=== PATIENT | male | born 1950 | race Caucasian/White ===

== ENCOUNTER 2016-06-20 11:21 | Outpatient (CLI) ==
[2015-03-15 11:23] VITALS: BMI 35.7
[2016-06-20 11:49] LABS: BASOPHILS # (AUTO) 0.1 K/uL (0-0.2); EOSINOPHILS # (AUTO) 0.1 K/ul (0.0-0.7); EOSINOPHILS % (AUTO) 0.9 % (0.0-7.0); HEMATOCRIT 43.2 % (42.0-52.0); HEMOGLOBIN 14.1 g/dl (14.0-18.0); IMMATURE GRANULOCYTE % (AUTO) 0.5 % (0.0-5.0); LYMPHOCYTES # (AUTO) 1.1 K/uL (0.60-3.4); LYMPHOCYTES % (AUTO) 10.4 (10.0-50.0); MEAN CORPUSCULAR HGB CONC 32.6 (31.8-35.4); MEAN CORPUSCULAR VOLUME 91.9 fl (80.0-94.0); MONOCYTES # (AUTO) 0.7 K/uL (0.4-2.0); NEUTROPHILS # (AUTO) 8.5 K/ul (2.0-6.9); NEUTROPHILS % (AUTO) 80.2; PLATELET COUNT 250 10^3/uL (140-440); WHITE BLOOD COUNT 10.57 K/ul (4.2-10.2)
[2016-06-20 12:13] LABS: ALBUMIN/GLOBULIN RATIO 1.14; ANION GAP 13.4; BILIRUBIN,TOTAL 0.39 mg/dL (0.00-1.20); BUN/CREATININE RATIO 15.78; CALCIUM 9.5 mg/dL (8.2-10.2); CREATININE 1.14 mg/dL (0.60-1.10); POTASSIUM 4.4 mmol/L (3.5-5.1); TOTAL PROTEIN 7.5 g/dL (5.8-8.1)
--- NOTE | 2016-06-20 13:57 | DI ---
EXAM: Three views of the left foot HISTORY: Left foot blister. COMPARISON: None FINDINGS: The osseous structures demonstrate no lytic or blastic lesion. Joint spaces demonstrate m inimal first MTP joint degenerative change. There is no displaced fracture or dislocation identifie d. The arch is maintained. The soft tissues are unremarkable. There is a calcaneal spur present. IMPRESSION: No acute abnormality of the left foot with mild degenerative change of the first MTP elda int.
== END 2016-06-20 11:22 | disposition home or self-care (01) ==
LOC: LAB 11:21
PROVIDERS: ATTEND Nurse Practitioner Family
DX: S90.822A Blister (nonthermal), left foot, initial encounter (principal); E11.9 Type 2 diabetes mellitus without complications; L89.891 Pressure ulcer of other site, stage 1
CPT/HCPCS: 36415; 80053; 85025

== ENCOUNTER 2016-06-29 08:27 | Outpatient (CLI) ==
[2015-03-15 11:23] VITALS: BMI 35.7
== END 2016-06-29 08:28 | disposition home or self-care (01) ==
LOC: WOUND 08:27
PROVIDERS: ATTEND Nurse Practitioner Family
DX: E11.621 Type 2 diabetes mellitus with foot ulcer (principal); L97.522 Non-pressure chronic ulcer of other part of left foot with fat layer exposed; E11.9 Type 2 diabetes mellitus without complications; E78.5 Hyperlipidemia, unspecified; E66.9 Obesity, unspecified; Z91.19 Patient's noncompliance with other medical treatment and regimen; Z86.31 Personal history of diabetic foot ulcer
CPT/HCPCS: 99203; 99212

== ENCOUNTER 2016-07-06 09:59 | Outpatient (CLI) ==
[2015-03-15 11:23] VITALS: BMI 35.7
== END 2016-07-06 10:00 | disposition home or self-care (01) ==
LOC: WOUND 09:59
PROVIDERS: ATTEND Nurse Practitioner Family
DX: E11.621 Type 2 diabetes mellitus with foot ulcer (principal); L97.522 Non-pressure chronic ulcer of other part of left foot with fat layer exposed; E11.9 Type 2 diabetes mellitus without complications; Z86.31 Personal history of diabetic foot ulcer; E78.5 Hyperlipidemia, unspecified; Z91.19 Patient's noncompliance with other medical treatment and regimen; E66.9 Obesity, unspecified
CPT/HCPCS: 11042; 87070; 87186; 99213

== ENCOUNTER 2016-07-13 08:51 | Outpatient (CLI) ==
[2015-03-15 11:23] VITALS: BMI 35.7
== END 2016-07-13 08:52 | disposition home or self-care (01) ==
LOC: WOUND 08:51
PROVIDERS: ATTEND Nurse Practitioner Family
DX: E11.621 Type 2 diabetes mellitus with foot ulcer (principal); L97.522 Non-pressure chronic ulcer of other part of left foot with fat layer exposed; E11.9 Type 2 diabetes mellitus without complications; Z86.31 Personal history of diabetic foot ulcer; E78.5 Hyperlipidemia, unspecified; Z91.19 Patient's noncompliance with other medical treatment and regimen; E66.9 Obesity, unspecified
CPT/HCPCS: 11042; 99213

== ENCOUNTER 2016-07-20 09:48 | Outpatient (CLI) | payer OTHER ==
[2015-03-15 11:23] VITALS: BMI 35.7
== END 2016-07-20 09:49 | disposition home or self-care (01) ==
LOC: WOUND 09:48
PROVIDERS: ATTEND Nurse Practitioner Family
DX: E11.621 Type 2 diabetes mellitus with foot ulcer (principal); L97.522 Non-pressure chronic ulcer of other part of left foot with fat layer exposed; E11.9 Type 2 diabetes mellitus without complications; Z86.31 Personal history of diabetic foot ulcer; E78.5 Hyperlipidemia, unspecified; Z91.19 Patient's noncompliance with other medical treatment and regimen; E66.9 Obesity, unspecified
CPT/HCPCS: 11042; 99213

== ENCOUNTER 2016-07-27 09:39 | Outpatient (CLI) ==
[2015-03-15 11:23] VITALS: BMI 35.7
== END 2016-07-27 09:40 | disposition home or self-care (01) ==
LOC: WOUND 09:39
PROVIDERS: ATTEND Nurse Practitioner Family
DX: E11.621 Type 2 diabetes mellitus with foot ulcer (principal); L97.522 Non-pressure chronic ulcer of other part of left foot with fat layer exposed; E11.9 Type 2 diabetes mellitus without complications; Z86.31 Personal history of diabetic foot ulcer; E78.5 Hyperlipidemia, unspecified; Z91.19 Patient's noncompliance with other medical treatment and regimen; E66.9 Obesity, unspecified
CPT/HCPCS: 97602

== ENCOUNTER 2016-08-03 09:48 | Outpatient (CLI) ==
[2015-03-15 11:23] VITALS: BMI 35.7
== END 2016-08-03 09:49 | disposition home or self-care (01) ==
LOC: WOUND 09:48
PROVIDERS: ATTEND Nurse Practitioner Family
DX: E11.621 Type 2 diabetes mellitus with foot ulcer (principal); L97.522 Non-pressure chronic ulcer of other part of left foot with fat layer exposed; E11.9 Type 2 diabetes mellitus without complications; Z86.31 Personal history of diabetic foot ulcer; E78.5 Hyperlipidemia, unspecified; Z91.19 Patient's noncompliance with other medical treatment and regimen; E66.9 Obesity, unspecified; E78.1 Pure hyperglyceridemia; F41.9 Anxiety disorder, unspecified
CPT/HCPCS: 11042; 36415; 80053; 80061; 83036; 85025; 99213

== ENCOUNTER 2016-08-03 10:41 | Outpatient (CLI) ==
[2015-03-15 11:23] VITALS: BMI 35.7
[2016-08-03 11:13] LABS: BASOPHILS # (AUTO) 0.1 K/uL (0-0.2); BASOPHILS % (AUTO) 0.7 % (0.0-3.0); EOSINOPHILS # (AUTO) 0.3 K/ul (0.0-0.7); EOSINOPHILS % (AUTO) 2.5 % (0.0-7.0); HEMATOCRIT 41.4 % (42.0-52.0); HEMOGLOBIN 13.7 g/dl (14.0-18.0); IMMATURE GRANULOCYTE % (AUTO) 0.5 % (0.0-5.0); LYMPHOCYTES # (AUTO) 1.8 K/uL (0.60-3.4); LYMPHOCYTES % (AUTO) 13.8 (10.0-50.0); MEAN CORPUSCULAR HEMOGLOBIN 29.8 pg (27.0-31.0); MEAN CORPUSCULAR HGB CONC 33.1 (31.8-35.4); MEAN CORPUSCULAR VOLUME 90.2 fl (80.0-94.0); MONOCYTES # (AUTO) 0.9 K/uL (0.4-2.0); MONOCYTES % (AUTO) 7.2 (0-10); NEUTROPHILS # (AUTO) 9.6 K/ul (2.0-6.9); NEUTROPHILS % (AUTO) 75.3; PLATELET COUNT 295 10^3/uL (140-440); RED BLOOD COUNT 4.59 10^6/ul (4.70-6.10); WHITE BLOOD COUNT 12.73 K/ul (4.2-10.2)
[2016-08-03 11:31] LABS: ALBUMIN 3.6 g/dL (3.4-5.0); ALBUMIN/GLOBULIN RATIO 0.95; ANION GAP 11.4; BILIRUBIN,TOTAL 0.61 mg/dL (0.00-1.20); BUN/CREATININE RATIO 13.58; CALCIUM 9.4 mg/dL (8.2-10.2); CREATININE 0.81 mg/dL (0.60-1.10); POTASSIUM 4.4 mmol/L (3.5-5.1); TOTAL PROTEIN 7.4 g/dL (5.8-8.1)
== END 2016-08-03 10:42 | disposition home or self-care (01) ==
LOC: LAB 10:41
PROVIDERS: ATTEND Nurse Practitioner Family
DX: E11.9 Type 2 diabetes mellitus without complications (principal); E78.1 Pure hyperglyceridemia; E78.5 Hyperlipidemia, unspecified; F41.9 Anxiety disorder, unspecified
CPT/HCPCS: 36415; 80053; 80061; 83036; 85025

== ENCOUNTER 2016-08-10 09:30 | Outpatient (CLI) | payer OTHER ==
[2015-03-15 11:23] VITALS: BMI 35.7
== END 2016-08-10 09:31 | disposition home or self-care (01) ==
LOC: WOUND 09:30
PROVIDERS: ATTEND Nurse Practitioner Family
DX: E11.621 Type 2 diabetes mellitus with foot ulcer (principal); L97.522 Non-pressure chronic ulcer of other part of left foot with fat layer exposed; E11.9 Type 2 diabetes mellitus without complications; Z86.31 Personal history of diabetic foot ulcer; E78.5 Hyperlipidemia, unspecified; Z91.19 Patient's noncompliance with other medical treatment and regimen; E66.9 Obesity, unspecified
CPT/HCPCS: 11042; 99213

== ENCOUNTER 2016-08-17 09:39 | Outpatient (CLI) ==
[2015-03-15 11:23] VITALS: BMI 35.7
== END 2016-08-17 09:40 | disposition home or self-care (01) ==
LOC: WOUND 09:39
PROVIDERS: ATTEND Nurse Practitioner Family
DX: E11.621 Type 2 diabetes mellitus with foot ulcer (principal); L97.522 Non-pressure chronic ulcer of other part of left foot with fat layer exposed; E78.5 Hyperlipidemia, unspecified; E66.9 Obesity, unspecified; Z86.31 Personal history of diabetic foot ulcer; Z91.19 Patient's noncompliance with other medical treatment and regimen
CPT/HCPCS: 11042; 99213

== ENCOUNTER 2016-08-24 11:26 | Outpatient (CLI) ==
[2015-03-15 11:23] VITALS: BMI 35.7
== END 2016-08-24 11:27 | disposition home or self-care (01) ==
LOC: WOUND 11:26
PROVIDERS: ATTEND Emergency Medicine
DX: E11.621 Type 2 diabetes mellitus with foot ulcer (principal); L97.522 Non-pressure chronic ulcer of other part of left foot with fat layer exposed; E11.9 Type 2 diabetes mellitus without complications; E78.5 Hyperlipidemia, unspecified; Z86.31 Personal history of diabetic foot ulcer; Z91.19 Patient's noncompliance with other medical treatment and regimen; E66.9 Obesity, unspecified
CPT/HCPCS: 11042; 99213; 99214

== ENCOUNTER 2016-08-31 08:34 | Outpatient (CLI) ==
[2015-03-15 11:23] VITALS: BMI 35.7
== END 2016-08-31 08:35 | disposition home or self-care (01) ==
LOC: WOUND 08:34
PROVIDERS: ATTEND Nurse Practitioner Family
DX: L97.522 Non-pressure chronic ulcer of other part of left foot with fat layer exposed (principal); E11.621 Type 2 diabetes mellitus with foot ulcer; E11.9 Type 2 diabetes mellitus without complications; Z86.31 Personal history of diabetic foot ulcer; E78.5 Hyperlipidemia, unspecified; Z91.19 Patient's noncompliance with other medical treatment and regimen; E66.9 Obesity, unspecified
CPT/HCPCS: 11042; 99214

== ENCOUNTER 2016-09-07 08:38 | Outpatient (CLI) | payer OTHER ==
[2015-03-15 11:23] VITALS: BMI 35.7
== END 2016-09-07 08:39 | disposition home or self-care (01) ==
LOC: WOUND 08:38
PROVIDERS: ATTEND Nurse Practitioner Family
DX: L97.522 Non-pressure chronic ulcer of other part of left foot with fat layer exposed (principal); E11.621 Type 2 diabetes mellitus with foot ulcer; Z86.31 Personal history of diabetic foot ulcer; E78.5 Hyperlipidemia, unspecified; Z91.19 Patient's noncompliance with other medical treatment and regimen; E66.9 Obesity, unspecified
CPT/HCPCS: 11042; 87070; 99213

== ENCOUNTER 2016-09-14 08:57 | Outpatient (CLI) | payer OTHER ==
[2015-03-15 11:23] VITALS: BMI 35.7
[2016-09-14 13:10] LABS: FLU INTERNAL QC INTERNAL QC VALID; RAPID FLU A NEGATIVE (NEGATIVE); RAPID FLU B NEGATIVE (NEGATIVE)
[2016-09-14 13:13] LABS: BASOPHILS # (AUTO) 0.1 K/uL (0-0.2); BASOPHILS % (AUTO) 0.5 % (0.0-3.0); EOSINOPHILS % (AUTO) 0.1 % (0.0-7.0); HEMATOCRIT 39.1 % (42.0-52.0); HEMOGLOBIN 12.9 g/dl (14.0-18.0); IMMATURE GRANULOCYTE % (AUTO) 0.5 % (0.0-5.0); LYMPHOCYTES # (AUTO) 2.5 K/uL (0.60-3.4); LYMPHOCYTES % (AUTO) 11.6 (10.0-50.0); MEAN CORPUSCULAR HEMOGLOBIN 29.7 pg (27.0-31.0); MEAN CORPUSCULAR VOLUME 90.1 fl (80.0-94.0); MONOCYTES # (AUTO) 1.7 K/uL (0.4-2.0); NEUTROPHILS # (AUTO) 16.8 K/ul (2.0-6.9); NEUTROPHILS % (AUTO) 79.3; PLATELET COUNT 294 10^3/uL (140-440); RED BLOOD COUNT 4.34 10^6/ul (4.70-6.10)
[2016-09-14 13:18] LABS: WHITE BLOOD COUNT 21.23 K/ul (4.2-10.2)
[2016-09-14 13:41] LABS: ALBUMIN 3.4 g/dL (3.4-5.0); ALBUMIN/GLOBULIN RATIO 0.87; ANION GAP 12.1; BILIRUBIN,TOTAL 0.77 mg/dL (0.00-1.20); BUN/CREATININE RATIO 22.22; CALCIUM 9.2 mg/dL (8.2-10.2); CREATININE 0.99 mg/dL (0.60-1.10); POTASSIUM 4.1 mmol/L (3.5-5.1); TOTAL PROTEIN 7.3 g/dL (5.8-8.1)
== END 2016-09-14 08:58 | disposition home or self-care (01) ==
LOC: WOUND 08:57
PROVIDERS: ATTEND Nurse Practitioner Family
DX: L97.522 Non-pressure chronic ulcer of other part of left foot with fat layer exposed (principal); E11.621 Type 2 diabetes mellitus with foot ulcer; E11.9 Type 2 diabetes mellitus without complications; Z86.31 Personal history of diabetic foot ulcer; E78.5 Hyperlipidemia, unspecified; Z91.19 Patient's noncompliance with other medical treatment and regimen; E66.9 Obesity, unspecified
CPT/HCPCS: 36415; 80053; 85025; 87804

== ENCOUNTER 2016-09-14 14:34 | Emergency (ER) ==
[2016-09-14 14:40] VITALS: BP 121/71; BMI 35.1
--- NOTE | 2016-09-14 15:04 | ED.PDOC ---
General ED Provider: Dr. DION BURDEN JR Chief Complaint: Weakness Stated Complaint: pt began having weakness, some shortness of air,very tired, no energy 2 days ago. was seen at clinic today and told he had a uti, a 20,000 white count and put on clindamycin and told to come to er[End]2 DAYS AGO 98.6 86 16 92% 121/71 DM CHOL CYSTS LEFT FOOT ULCER RIGHT ABDOMEN ABRASION Time Seen by Physician: 15:04 Mode of Arrival: Wheelchair Information Source: Patient Exam Limitations: No limitations [facility] Documentation Reviewed and Agree: No Review of Systems - Review Of Systems Constitutional: Reports: Fever, Malaise, Weakness Eyes: Reports: No symptoms Ears, Nose, Mouth, Throat: Reports: No symptoms Respiratory: Reports: Short of air Cardiac: Reports: No symptoms GI: Reports: No symptoms : Reports: No symptoms Musculoskeletal: Reports: Muscle pain Skin: Reports: No symptoms Neurological: Reports: No symptoms Endocrine: Reports: No symptoms Hematologic/Lymphatic: Reports: No symptoms All Other Systems: Other Past Medical History - Past Medical History Previously Healthy: Yes Endocrine: Reports: DM 2 Cardiovascular: Reports: None Respiratory: Reports: None Hematological: Reports: None Gastrointestinal: Reports: None Genitourinary: Reports: None Neuro/Psych: Reports: None Musculoskeletal: Reports: None Cancer: Reports: None - Surgical History General Surgical History: Reports: Unknown - Family History Family History: Reports: Unknown - Social History Smoking Status: Current every day smoker Hx Substance Use: No Alcohol Screening: None Physical Exam - Physical Exam Appearance: Ill-appearing Ill-appearing: Mild Pain Distress: Mild Eyes: DARIUS, EOMI, Conjunctiva clear ENT: Ears normal, Nose normal, Oropharynx normal Neck: Supple Respiratory: Airway patent, Breath sounds equal, Respirations nonlabored, Rhonchi Cardiovascular: RRR, Pulses normal, No rub, No murmur GI/: Soft, Nontender, No masses, Bowel sounds normal, No Organomegaly Musculoskeletal: Normal strength, ROM intact, No edema, No calf tenderness Skin: Warm, Dry, Normal color Neurological: Sensation intact, Motor intact, Reflexes intact, Cranial nerves intact, Alert, Oriented Psychiatric: Affect appropriate, Mood appropriate Interpretation - EKG Interpretation Time of EKG #1: 15:05 Rate: Normal Rhythm: Sinus Ectopy: None [place]: [place] Critical Care Note - Critical Care Note Total Time (mins): 5 Course - Course Orders, Labs, Meds: Lab Review 09/14/16 09/14/16 15:10 15:35 Lactic Acid 10.8 Total Creatine Kinase 69 Troponin I < 0.0100 B-Natriuretic Peptide 19 Amylase 22 L Lipase 19 Procalcitonin 0.12 Urine Color Yellow Urine Clarity Clear Urine pH 7.0 Ur Specific [place] 1.015 Urine Protein 1+ Urine Glucose (UA) Trace Urine Ketones Negative Urine Blood Negative Urine Nitrite Negative Urine Bilirubin Negative Urine Urobilinogen 4.0 Ur Leukocyte Esterase Trace Urine Microscopic RBC 0-2 Urine Microscopic WBC 10-20 Ur Squamous Epith Cells 2-5 Urine Bacteria 1+ Urine Mucus Trace Orders Category Date Time Status EKG-(ED ONLY) Stat CARDIO 09/14/16 14:53 Completed ED IV/MEDIPORT/POWERPORT .ONCE EMERGENCY 09/14/16 14:53 Active AMYLASE Stat LAB 09/14/16 15:10 Completed B-TYPE NATRIURETIC PEPTIDE Stat LAB 09/14/16 15:10 Completed BLOOD CULTURE Stat LAB 09/14/16 15:10 Received CREATINE KINASE Stat LAB 09/14/16 15:10 Completed LACTIC ACID Stat LAB 09/14/16 15:10 Completed LIPASE Stat LAB 09/14/16 15:10 Completed PROCALCITONIN Stat LAB 09/14/16 15:10 Completed TROPONIN I Stat LAB 09/14/16 15:10 Completed URINALYSIS C & S IF INDICATED Stat LAB 09/14/16 15:35 Completed URINE CULTURE Stat LAB 09/14/16 16:03 Received 0.9 % Sodium Chloride [Saline Flush] MEDS 09/14/16 14:53 Active 1 syr IVF PRN PRN Levofloxacin/D5w [Levaquin] 150 ml MEDS 09/14/16 15:57 Discontinued IV .STK-MED Levofloxacin/D5w [Levaquin] 750 mg MEDS 09/14/16 15:54 Active Premix 150 ml D5w 1 bag IV ONCE CHEST, 2 VIEWS PA & LAT Stat RADS 09/14/16 15:56 Completed Medications Generic Name Dose Route Start Last Admin Trade Name Freq PRN Reason Stop Dose Admin Levofloxacin/Dextrose 750 mg/ 150 mls @ 100 mls/hr 09/14/16 15:54 09/14/16 16 :03 Dextrose IV 09/14/16 17:23 100 mls/hr ONCE STA Administration Sodium Chloride 1 syr 09/14/16 14:53 Saline Flush IVF PRN PRN To flush IV Vital Signs: Temp Pulse Resp BP Pulse Ox 09/14/16 16:05 97.3 F L 09/14/16 14:37 98.6 F 86 16 121/71 92 L Departure - Departure Time of Disposition: 17:20 Disposition: HOME SELF-CARE Discharge Problem: Left lower lobe pneumonia Qualifiers: Pneumonia type: due to unspecified organism Qualifier Code: (J18.1) Lobar pneumonia, unspecified organism UTI (urinary tract infection) Qualifiers: Urinary tract infection type: acute cystitis Hematuria presence: without hematuria Qualifier Code: (N30.00) Acute cystitis without hematuria Instructions: Bacterial Pneumonia (ED), Urinary Tract Infection in Men (ED) Condition: Good Pt referred to PMD for follow-up: Yes Additional Instructions: Levaquin daily for one week- stop Celexa on days when you take Levaquin recheck urine 2 weeks sooner if not resolve recheck PMD 2 weeks discuss follow up for urinary tract infection return if fever over 101.0 if short of breath if worsening Prescriptions: Guaifenesin/Codeine Phosphate [Robitussin AC Syrup] 10 ml PO Q6H PRN #240 ml PRN Reason: Cough Levofloxacin [Levaquin] 750 mg PO DAILY #7 tablet Allergies/Adverse Reactions: Allergies ampicillin Adverse Reaction (Verified 09/14/16 14:40) codeine Adverse Reaction (Verified 09/14/16 14:40) Swelling Sulfa (Sulfonamide Antibiotics) Adverse Reaction (Verified 09/14/16 14:40) Itching Home Medications: Ambulatory Orders Citalopram Hydrobromide [Celexa] 20 mg PO DAILY 10/18/13 Guaifenesin/Codeine Phosphate [Robitussin AC Syrup] 10 ml PO Q6H PRN #240 ml Levofloxacin [Levaquin] 750 mg PO DAILY #7 tablet 09/14/16
[2016-09-14] MEDS ORDERED: LEVAQUIN 750 MG in PREMIX 150 ML D5W 1 BAG IV STA (15:54)
[2016-09-14 15:56] LABS: BILIRUBIN,URINE Negative (NEGATIVE); KETONES,URINE Negative (NEGATIVE); LEUKOCYTE ESTERASE ,URINE Trace (NEGATIVE); NITRITE,URINE Negative (NEGATIVE); PROTEIN,URINE 1+ (NEGATIVE); URINE, BLOOD Negative (NEGATIVE)
[2016-09-14 15:57] LABS: ADD URINE MICROSCOPIC YES
[2016-09-14] MEDS ORDERED: LEVAQUIN 150 ML IV ONE (15:57)
[2016-09-14 15:59] LABS: AMYLASE 22 U/L (25-115); CREATINE KINASE 69 U/L; LIPASE 19 U/L (8-78)
[2016-09-14 16:03] LABS: BACTERIA,URINE 1+ (NOT PRESENT)
[2016-09-14 16:06] VITALS: TEMP 97.3
--- NOTE | 2016-09-14 16:46 | DI ---
EXAM: CHEST FRONTAL AND LATERAL VIEWS HISTORY: Fever, weakness. COMPARISON: None FINDINGS: Heart size within normal limits. There is at least mild aortic atherosclerosis. Subtle discoid density in the left base. Lungs are otherwise clear. Normal vascularity. There is no pneu mothorax or pleural fluid. IMPRESSION: Subtle discoid density in the left base could represent scarring, atelectasis or minim al pneumonia. Lungs are otherwise clear.
== END 2016-09-14 17:48 | disposition home or self-care (01) ==
LOC: ED 14:34
DX: J18.1 Lobar pneumonia, unspecified organism (principal); N30.00 Acute cystitis without hematuria; B96.4 Proteus (mirabilis) (morganii) as the cause of diseases classified elsewhere; R06.02 Shortness of breath; E11.9 Type 2 diabetes mellitus without complications; F17.210 Nicotine dependence, cigarettes, uncomplicated; L97.522 Non-pressure chronic ulcer of other part of left foot with fat layer exposed; E11.621 Type 2 diabetes mellitus with foot ulcer; Z86.31 Personal history of diabetic foot ulcer; E78.5 Hyperlipidemia, unspecified; Z91.19 Patient's noncompliance with other medical treatment and regimen; E66.9 Obesity, unspecified; R52 Pain, unspecified; R42 Dizziness and giddiness; Z12.5 Encounter for screening for malignant neoplasm of prostate
CPT/HCPCS: 11042; 36415; 80053; 81001; 82150; 82550; 83605; 83690; 83880; 84145; 84484; 85025; 87040; 87086; 87186; 87804; 93005; 93010; 96365; 96366; 99213; 99283

== ENCOUNTER 2016-09-21 09:26 | Outpatient (CLI) ==
--- NOTE | 2016-09-21 12:02 | CT ---
EXAM: Noncontrast CT of the chest HISTORY: Shortness of breath COMPARISON: 09/14/2016 chest x-ray TECHNIQUE: Noncontrast CT of the chest FINDINGS: There is minimal inferior left lower lobe subsegmental atelectasis. Minimal left lower lobe tree in bud type opacities are also present, as seen on axial image 43. There is minimal peribronchial wal l thickening. No focal consolidation, pleural effusion or pneumothorax is seen. A few calcified gra nulomas are present. Heart size is normal. Atherosclerotic calcifications are present including the coronary arteries. Calcified mediastinal lymph nodes are seen. No mediastinal lymphadenopathy is identified. Multiple right renal cysts are seen with the largest measuring 9.6 cm. Other right renal hypodense lesions are present which are too small to accurately characterize. IMPRESSION: Minimal left lower lobe tree in bud type opacities compatible with small airway infection or inflamm ation. Minimal peribronchial wall thickening which can be seen with bronchitis/bronchiolitis. Minimal left lower lobe subsegmental atelectasis. Evidence of prior granulomatous infection. Atherosclerosis including the coronary arteries. Multiple right renal cysts and other hypodensities too small to accurately characterize.
== END 2016-09-21 09:27 | disposition home or self-care (01) ==
LOC: WOUND 09:26
PROVIDERS: ATTEND Nurse Practitioner Family
DX: L97.522 Non-pressure chronic ulcer of other part of left foot with fat layer exposed (principal); E11.621 Type 2 diabetes mellitus with foot ulcer; Z86.31 Personal history of diabetic foot ulcer; E78.5 Hyperlipidemia, unspecified; Z91.19 Patient's noncompliance with other medical treatment and regimen; E66.9 Obesity, unspecified
CPT/HCPCS: 11042; 99213

== ENCOUNTER 2016-09-28 09:00 | Outpatient (CLI) | END 2016-09-28 09:01 | disposition home or self-care (01) | LOC: WOUND 09:00 | PROVIDERS: ATTEND Nurse Practitioner Family | DX: L97.522 Non-pressure chronic ulcer of other part of left foot with fat layer exposed (principal); E11.621 Type 2 diabetes mellitus with foot ulcer; E11.9 Type 2 diabetes mellitus without complications; Z86.31 Personal history of diabetic foot ulcer; E78.5 Hyperlipidemia, unspecified; Z91.19 Patient's noncompliance with other medical treatment and regimen; E66.9 Obesity, unspecified | CPT/HCPCS: 11042; 99213 ==

== ENCOUNTER 2016-10-12 08:46 | Outpatient (CLI) | payer OTHER | END 2016-10-12 08:47 | disposition home or self-care (01) | LOC: WOUND 08:46 | PROVIDERS: ATTEND Nurse Practitioner Family | DX: L97.522 Non-pressure chronic ulcer of other part of left foot with fat layer exposed (principal); E11.621 Type 2 diabetes mellitus with foot ulcer; E11.9 Type 2 diabetes mellitus without complications; Z86.31 Personal history of diabetic foot ulcer; E78.5 Hyperlipidemia, unspecified; Z91.19 Patient's noncompliance with other medical treatment and regimen; E66.9 Obesity, unspecified | CPT/HCPCS: 11042; 11045; 99213 ==

== ENCOUNTER 2016-10-14 08:49 | Outpatient (CLI) | payer OTHER ==
[2016-10-14] MEDS ORDERED: ALBUTEROL 0.083% NEB NEB STA (09:07)
== END 2016-10-14 08:50 | disposition home or self-care (01) ==
LOC: CAR 08:49
PROVIDERS: ATTEND Emergency Medicine
DX: J44.9 Chronic obstructive pulmonary disease, unspecified (principal)

== ENCOUNTER 2016-10-25 11:29 | Outpatient (CLI) ==
[2016-10-25 12:45] LABS: FLU INTERNAL QC INTERNAL QC VALID; RAPID FLU A NEGATIVE (NEGATIVE); RAPID FLU B NEGATIVE (NEGATIVE)
== END 2016-10-25 11:30 | disposition home or self-care (01) ==
LOC: LAB 11:29
PROVIDERS: ATTEND Nurse Practitioner Family
DX: R50.9 Fever, unspecified (principal); R52 Pain, unspecified
CPT/HCPCS: 87804

== ENCOUNTER → 2016-10-26 | Outpatient (RCR) | payer OTHER | LOC: WOUND 08:50 | PROVIDERS: ATTEND Nurse Practitioner Family | DX: L97.522 Non-pressure chronic ulcer of other part of left foot with fat layer exposed (principal); E11.621 Type 2 diabetes mellitus with foot ulcer; E11.9 Type 2 diabetes mellitus without complications; Z86.31 Personal history of diabetic foot ulcer; E78.5 Hyperlipidemia, unspecified; Z91.19 Patient's noncompliance with other medical treatment and regimen; E66.9 Obesity, unspecified | CPT/HCPCS: 11042; 99213 ==

== ENCOUNTER 2016-11-02 08:24 | Outpatient (CLI) | END 2016-11-02 08:25 | disposition home or self-care (01) | LOC: WOUND 08:24 | PROVIDERS: ATTEND Nurse Practitioner Family | DX: L97.522 Non-pressure chronic ulcer of other part of left foot with fat layer exposed (principal); E11.621 Type 2 diabetes mellitus with foot ulcer; E11.9 Type 2 diabetes mellitus without complications; Z86.31 Personal history of diabetic foot ulcer; E78.5 Hyperlipidemia, unspecified; Z91.19 Patient's noncompliance with other medical treatment and regimen; E66.9 Obesity, unspecified | CPT/HCPCS: 11042 ==

== ENCOUNTER → 2016-11-09 | Outpatient (CLI) | LOC: WOUND 09:16 → EDSTATUS 09:34 | PROVIDERS: ATTEND Nurse Practitioner Family | DX: L97.522 Non-pressure chronic ulcer of other part of left foot with fat layer exposed (principal); E11.621 Type 2 diabetes mellitus with foot ulcer; E11.9 Type 2 diabetes mellitus without complications; Z86.31 Personal history of diabetic foot ulcer; E78.5 Hyperlipidemia, unspecified; Z91.19 Patient's noncompliance with other medical treatment and regimen; E66.9 Obesity, unspecified | CPT/HCPCS: 11042; 99213 ==

== ENCOUNTER 2016-11-10 14:16 | Outpatient (CLI) | payer OTHER ==
[2016-11-10 14:39] LABS: BASOPHILS # (AUTO) 0.1 K/uL (0-0.2); BASOPHILS % (AUTO) 1.3 % (0.0-3.0); EOSINOPHILS # (AUTO) 0.2 K/ul (0.0-0.7); EOSINOPHILS % (AUTO) 1.5 % (0.0-7.0); HEMATOCRIT 43.2 % (42.0-52.0); HEMOGLOBIN 13.9 g/dl (14.0-18.0); IMMATURE GRANULOCYTE % (AUTO) 0.3 % (0.0-5.0); LYMPHOCYTES # (AUTO) 2.3 K/uL (0.60-3.4); LYMPHOCYTES % (AUTO) 23.2 (10.0-50.0); MEAN CORPUSCULAR HGB CONC 32.2 (31.8-35.4); MONOCYTES # (AUTO) 0.7 K/uL (0.4-2.0); MONOCYTES % (AUTO) 7.3 (0-10); NEUTROPHILS # (AUTO) 6.6 K/ul (2.0-6.9); NEUTROPHILS % (AUTO) 66.4; PLATELET COUNT 310 10^3/uL (140-440); WHITE BLOOD COUNT 9.89 K/ul (4.2-10.2)
== END 2016-11-10 14:17 | disposition home or self-care (01) ==
LOC: LAB 14:16
PROVIDERS: ATTEND Emergency Medicine
DX: E11.9 Type 2 diabetes mellitus without complications (principal)
CPT/HCPCS: 36415; 83036; 85025

== ENCOUNTER 2016-11-16 07:52 | Outpatient (CLI) | END 2016-11-16 07:53 | disposition home or self-care (01) | LOC: WOUND 07:52 | PROVIDERS: ATTEND Nurse Practitioner Family | DX: L97.522 Non-pressure chronic ulcer of other part of left foot with fat layer exposed (principal); E11.621 Type 2 diabetes mellitus with foot ulcer; E11.9 Type 2 diabetes mellitus without complications; Z86.31 Personal history of diabetic foot ulcer; E78.5 Hyperlipidemia, unspecified; Z91.19 Patient's noncompliance with other medical treatment and regimen; E66.9 Obesity, unspecified ==

== ENCOUNTER 2016-11-23 08:19 | Outpatient (CLI) | END 2016-11-23 08:20 | disposition home or self-care (01) | LOC: WOUND 08:19 | PROVIDERS: ATTEND Nurse Practitioner Family | DX: L97.522 Non-pressure chronic ulcer of other part of left foot with fat layer exposed (principal); E11.621 Type 2 diabetes mellitus with foot ulcer; E11.9 Type 2 diabetes mellitus without complications; Z86.31 Personal history of diabetic foot ulcer; E78.5 Hyperlipidemia, unspecified; Z91.19 Patient's noncompliance with other medical treatment and regimen; E66.9 Obesity, unspecified ==

== ENCOUNTER 2016-12-14 08:20 | Outpatient (CLI) | END 2016-12-14 08:21 | disposition home or self-care (01) | LOC: WOUND 08:20 | PROVIDERS: ATTEND Nurse Practitioner Family | DX: L97.522 Non-pressure chronic ulcer of other part of left foot with fat layer exposed (principal); E11.621 Type 2 diabetes mellitus with foot ulcer; E78.5 Hyperlipidemia, unspecified; E66.9 Obesity, unspecified; Z86.31 Personal history of diabetic foot ulcer; Z91.19 Patient's noncompliance with other medical treatment and regimen ==

== ENCOUNTER 2016-12-21 08:11 | Outpatient (CLI) | payer OTHER | END 2016-12-21 08:12 | disposition home or self-care (01) | LOC: WOUND 08:11 | PROVIDERS: ATTEND Nurse Practitioner Family | DX: L97.522 Non-pressure chronic ulcer of other part of left foot with fat layer exposed (principal); E11.621 Type 2 diabetes mellitus with foot ulcer; E11.9 Type 2 diabetes mellitus without complications; Z86.31 Personal history of diabetic foot ulcer; E78.5 Hyperlipidemia, unspecified; Z91.19 Patient's noncompliance with other medical treatment and regimen; E66.9 Obesity, unspecified | CPT/HCPCS: 99211; 99213 ==

== ENCOUNTER 2017-01-11 08:18 | Outpatient (CLI) ==
[2017-01-11 08:40] LABS: BASOPHILS # (AUTO) 0.1 K/uL (0-0.2); BASOPHILS % (AUTO) 1.3 % (0.0-3.0); EOSINOPHILS # (AUTO) 0.4 K/ul (0.0-0.7); EOSINOPHILS % (AUTO) 4.7 % (0.0-7.0); HEMOGLOBIN 13.8 g/dl (14.0-18.0); IMMATURE GRANULOCYTE % (AUTO) 0.3 % (0.0-5.0); LYMPHOCYTES # (AUTO) 1.7 K/uL (0.60-3.4); LYMPHOCYTES % (AUTO) 18.3 (10.0-50.0); MEAN CORPUSCULAR HEMOGLOBIN 29.2 pg (27.0-31.0); MEAN CORPUSCULAR HGB CONC 32.9 (31.8-35.4); MEAN CORPUSCULAR VOLUME 88.8 fl (80.0-94.0); MONOCYTES # (AUTO) 0.7 K/uL (0.4-2.0); MONOCYTES % (AUTO) 7.6 (0-10); NEUTROPHILS # (AUTO) 6.2 K/ul (2.0-6.9); NEUTROPHILS % (AUTO) 67.8; PLATELET COUNT 320 10^3/uL (140-440); RED BLOOD COUNT 4.73 10^6/ul (4.70-6.10); WHITE BLOOD COUNT 9.11 K/ul (4.2-10.2)
[2017-01-11 09:21] LABS: ALBUMIN 3.6 g/dL (3.4-5.0); ALBUMIN/GLOBULIN RATIO 0.97; ANION GAP 16.3; BILIRUBIN,TOTAL 0.52 mg/dL (0.00-1.20); BUN/CREATININE RATIO 23.71; CALCIUM 9.5 mg/dL (8.2-10.2); CHOL/HDL RATIO 3.5 (4.5-6.4); CREATININE 0.97 mg/dL (0.60-1.10); POTASSIUM 4.3 mmol/L (3.5-5.1); TOTAL PROTEIN 7.3 g/dL (5.8-8.1)
== END 2017-01-11 08:19 | disposition home or self-care (01) ==
LOC: WOUND 08:18
PROVIDERS: ATTEND Nurse Practitioner Family
DX: L97.522 Non-pressure chronic ulcer of other part of left foot with fat layer exposed (principal); E11.621 Type 2 diabetes mellitus with foot ulcer; E11.9 Type 2 diabetes mellitus without complications; E78.5 Hyperlipidemia, unspecified; Z86.31 Personal history of diabetic foot ulcer; Z91.19 Patient's noncompliance with other medical treatment and regimen; E66.9 Obesity, unspecified
CPT/HCPCS: 36415; 80053; 80061; 83036; 84443; 85025

== ENCOUNTER 2017-05-03 10:09 | Outpatient (CLI) ==
[2017-05-03 10:25] LABS: BASOPHILS # (AUTO) 0.1 K/uL (0-0.2); BASOPHILS % (AUTO) 1.7 % (0.0-3.0); EOSINOPHILS # (AUTO) 0.3 K/ul (0.0-0.7); EOSINOPHILS % (AUTO) 4.6 % (0.0-7.0); HEMATOCRIT 39.2 % (42.0-52.0); IMMATURE GRANULOCYTE % (AUTO) 0.3 % (0.0-5.0); LYMPHOCYTES # (AUTO) 1.4 K/uL (0.60-3.4); LYMPHOCYTES % (AUTO) 20.5 (10.0-50.0); MEAN CORPUSCULAR HEMOGLOBIN 30.7 pg (27.0-31.0); MEAN CORPUSCULAR HGB CONC 33.2 (31.8-35.4); MEAN CORPUSCULAR VOLUME 92.5 fl (80.0-94.0); MONOCYTES # (AUTO) 0.4 K/uL (0.4-2.0); MONOCYTES % (AUTO) 5.7 (0-10); NEUTROPHILS # (AUTO) 4.7 K/ul (2.0-6.9); NEUTROPHILS % (AUTO) 67.2; PLATELET COUNT 294 10^3/uL (140-440); RED BLOOD COUNT 4.24 10^6/ul (4.70-6.10); WHITE BLOOD COUNT 6.99 K/ul (4.2-10.2)
[2017-05-03 11:19] LABS: ALBUMIN 3.3 g/dL (3.4-5.0); ALBUMIN/GLOBULIN RATIO 0.92; ANION GAP 11.2; BILIRUBIN,TOTAL 0.3 mg/dL (0.00-1.20); BUN/CREATININE RATIO 18.51; CALCIUM 9.1 mg/dL (8.2-10.2); CHOL/HDL RATIO 4.1 (4.5-6.4); CREATININE 0.81 mg/dL (0.60-1.10); POTASSIUM 4.2 mmol/L (3.5-5.1); TOTAL PROTEIN 6.9 g/dL (5.8-8.1)
== END 2017-05-03 10:10 | disposition home or self-care (01) ==
LOC: LAB 10:09
PROVIDERS: ATTEND Emergency Medicine
DX: E11.9 Type 2 diabetes mellitus without complications (principal)
CPT/HCPCS: 36415; 80053; 80061; 83036; 84443; 85025

== ENCOUNTER 2017-08-04 09:27 | Outpatient (CLI) | END 2017-08-04 09:28 | disposition home or self-care (01) | LOC: RHC-LAB 09:27 | PROVIDERS: ATTEND Nurse Practitioner Family | DX: E11.9 Type 2 diabetes mellitus without complications (principal); E78.1 Pure hyperglyceridemia; E78.5 Hyperlipidemia, unspecified; Z72.0 Tobacco use | CPT/HCPCS: 36415; 80053; 80061; 83036; 85025 ==

== ENCOUNTER 2017-08-09 08:16 | Outpatient (CLI) | END 2017-08-09 08:17 | disposition home or self-care (01) | LOC: WOUND 08:16 | PROVIDERS: ATTEND Nurse Practitioner Family | DX: L97.522 Non-pressure chronic ulcer of other part of left foot with fat layer exposed (principal); E11.621 Type 2 diabetes mellitus with foot ulcer; Z86.31 Personal history of diabetic foot ulcer; E78.5 Hyperlipidemia, unspecified; E66.9 Obesity, unspecified ==

== ENCOUNTER 2017-08-16 09:10 | Outpatient (CLI) | END 2017-08-16 09:11 | disposition home or self-care (01) | LOC: WOUND 09:10 | PROVIDERS: ATTEND Nurse Practitioner Family | DX: L97.522 Non-pressure chronic ulcer of other part of left foot with fat layer exposed (principal); E11.621 Type 2 diabetes mellitus with foot ulcer; Z86.31 Personal history of diabetic foot ulcer; E78.5 Hyperlipidemia, unspecified; E66.9 Obesity, unspecified | CPT/HCPCS: 11042; 99212; 99213 ==

== ENCOUNTER 2017-08-18 07:43 | Outpatient (CLI) ==
--- NOTE | 2017-08-19 00:44 | NM ---
EXAM: Bone scan, three-phase . HISTORY: Sore on fifth toe of the left foot for 3 weeks. Also ulcer on side of the left great toe fo r 3 weeks. The patient is diabetic. COMPARISON: None of this type. Radiograph 06/20/2016. PROCEDURE: The patient was injected with 26 mCi of 99m technetium HDP intravenously. A flow study was performed followed by immediate blood pool phase images. After an appropriate interval, delayed bone phase images were obtained. FINDINGS:The anterior perfusion phase images show focal increased activity at the level of the fifth toe of the left foot and along the first metatarsal of the left foot. Immediate blood pool phase farhan ges show intense activity in the fifth toe of the left foot and modest activity along the first metat arsal of the left foot. There is modest activity at the tip of the right great toe. Delayed bone pha se images demonstrate continued intense activity in the fifth toe of the left foot and modest increas ed activity in the left first metatarsal phalangeal joint and at the tip of the great toe with simila r activity on the right. The delayed images incidentally show asymmetrically increased activity in th e left calcaneus compared to the right. IMPRESSION: 1.The three-phase examination is positive on all three-phase in the fifth toe of the left foot. The findings are compatible with the presence of osteomyelitis. 2.There is modest increased activity in the first metatarsal on the left on the immediate blood pool phase images with residual activity in the first metatarsal phalangeal joint and distal phalanx of th e great toe on the left probably associated with degenerative arthritis although early osteomyelitis cannot be totally excluded. Similar findings are seen in the great toe on the right. 3. There is asymmetric increased activity in the left calcaneus on the delayed images; this may repre sent evidence of repetitive stress.
== END 2017-08-18 07:44 | disposition home or self-care (01) ==
LOC: RAD 07:43
PROVIDERS: ATTEND Nurse Practitioner Family
DX: L97.528 Non-pressure chronic ulcer of other part of left foot with other specified severity (principal); E11.9 Type 2 diabetes mellitus without complications

== ENCOUNTER 2017-08-23 08:04 | Outpatient (CLI) | payer OTHER | END 2017-08-23 08:05 | disposition home or self-care (01) | LOC: WOUND 08:04 | PROVIDERS: ATTEND Nurse Practitioner Family | DX: L97.522 Non-pressure chronic ulcer of other part of left foot with fat layer exposed (principal); E11.621 Type 2 diabetes mellitus with foot ulcer; Z86.31 Personal history of diabetic foot ulcer; E78.5 Hyperlipidemia, unspecified; E66.9 Obesity, unspecified; M86.9 Osteomyelitis, unspecified ==

== ENCOUNTER 2017-10-27 22:20 | Emergency (ER) | payer OTHER ==
[2017-10-27 22:34] VITALS: BP 144/78; BMI 34.0
--- NOTE | 2017-10-27 22:51 | ED.PDOC ---
General ED Provider: Dr. MAREK CONNOLLY Chief Complaint: Fever Stated Complaint: Been having fever, no chills, not short of breath, not been coughing or congested. Time Seen by Physician: 22:51 Mode of Arrival: Wheelchair Information Source: Patient Primary Care Provider: MAREK CONNOLLY-[facility] Nursing and Triage Documentation Reviewed and Agree: Yes Reviewed sepsis parameters & appropriate labs ordered?: Yes System Inflammatory Response Syndrome: Temp 101F or Greater, Temp 96.8F or Lower , Pulse >90 BPM Sepsis Protocol: For patient's 13 years and over: Temp is 96.8 and below OR 101 and greater Pulse >90 BPM Resp >20/minute Acutely Altered Mental Status Are patient's symptoms suggestive of a new infection, such as: -Pneumonia -Skin, Soft Tissue -Endocarditis -UTI -Bone, Joint Infection -Implantable Device -Acute Abdominal Infection -Wound Infection -Meningitis -Blood Stream Catheter Infection -Unknown Skin Complaint Exam - Skin/Soft Tissue Complaint/Exam Symptoms Are: Still present Timing: Constant Initial Severity: Mild Current Severity: Mild Character: Reports: Redness, Swelling Aggravating: Reports: Touch Alleviating: Reports: None Associated Signs and Symptoms: Reports: Fever, Tenderness. Denies: Chills, Itching, Drainage, Bruising, Red streaks, Joint swelling Related History: Reports: Similar episode Related Surgical History: Reports: None Recent Exposure to Others w/Similar Symptoms: Yes Skin Findings: Present: Erythema, Induration Joint Tenderness Present: No Differential Diagnoses: Abscess, Cellulitis Review of Systems - Review Of Systems Constitutional: Reports: Fever, Malaise Eyes: Reports: No symptoms Ears, Nose, Mouth, Throat: Reports: No symptoms Respiratory: Reports: No symptoms Cardiac: Reports: No symptoms GI: Reports: No symptoms : Reports: No symptoms Musculoskeletal: Reports: No symptoms Skin: Reports: No symptoms Neurological: Reports: No symptoms Endocrine: Reports: No symptoms Hematologic/Lymphatic: Reports: No symptoms All Other Systems: Reviewed and Negative Past Medical History - Past Medical History Previously Healthy: Yes Endocrine: Reports: DM 2 Cardiovascular: Reports: Hypertension Respiratory: Reports: None Hematological: Reports: None Gastrointestinal: Reports: None Genitourinary: Reports: None Neuro/Psych: Reports: None Musculoskeletal: Reports: None Cancer: Reports: None - Surgical History General Surgical History: Reports: Unknown - Family History Family History: Reports: Unknown - Social History Smoking Status: Current every day smoker, Light tobacco smoker Smoking Cessation Counseling Time: > 3 min - 10 min Hx Substance Use: No Alcohol Screening: Occasionally - Immunizations Tetanus Shot up to Date: Yes Physical Exam - Physical Exam Appearance: Well-appearing, No pain distress, Well-nourished Eyes: DARIUS, EOMI, Conjunctiva clear ENT: Ears normal, Nose normal, Oropharynx normal Respiratory: Airway patent, Breath sounds clear, Breath sounds equal, Respirations nonlabored Cardiovascular: RRR, Pulses normal, No rub, No murmur GI/: Soft, Nontender, No masses, Bowel sounds normal, No Organomegaly Musculoskeletal: Normal strength, ROM intact, No edema, No calf tenderness Skin: Warm (rt arm wound swelling rednedd tender.), Dry, Normal color Neurological: Sensation intact, Motor intact, Reflexes intact, Cranial nerves intact, Alert, Oriented Psychiatric: Affect appropriate, Mood appropriate Critical Care Note - Critical Care Note Total Time (mins): 30 Course - Course Hematology/Chemistry: 10/27/17 22:50 10/27/17 22:50 Orders, Labs, Meds: Lab Review 10/27/17 10/27/17 10/27/17 22:50 22:50 22:50 WBC 8.45 RBC 4.70 Hgb 13.9 L Hct 42.4 MCV 90.2 MCH 29.6 MCHC 32.8 RDW Coeff of Yolanda 13.7 Plt Count 341 Immature Gran % (Auto) 0.2 Neut % (Auto) 85.9 Lymph % (Auto) 7.0 L Zavala % (Auto) 5.4 Eos % (Auto) 0.6 Baso % (Auto) 0.9 Immature Gran # (Auto) 0.0 Neut # (Auto) 7.3 H Lymph # (Auto) 0.6 Zavala # (Auto) 0.5 Eos # (Auto) 0.1 Baso # (Auto) 0.1 Sodium 136 Potassium 3.9 Chloride 102 Carbon Dioxide 22 L Anion Gap 15.9 BUN 14 Creatinine 0.91 Estimated GFR (MDRD) 83.00 BUN/Creatinine Ratio 15.38 Glucose 137 H Lactic Acid 16.5 Calcium 9.6 Total Bilirubin 0.4 AST 30 ALT 23 Alkaline Phosphatase 41 L Total Protein 8.2 H Albumin 3.3 L Globulin 4.9 Albumin/Globulin Ratio 0.67 Procalcitonin 10/27/17 22:50 WBC RBC Hgb Hct MCV MCH MCHC RDW Coeff of Yolanda Plt Count Immature Gran % (Auto) Neut % (Auto) Lymph % (Auto) Zavala % (Auto) Eos % (Auto) Baso % (Auto) Immature Gran # (Auto) Neut # (Auto) Lymph # (Auto) Zavala # (Auto) Eos # (Auto) Baso # (Auto) Sodium Potassium Chloride Carbon Dioxide Anion Gap BUN Creatinine Estimated GFR (MDRD) BUN/Creatinine Ratio Glucose Lactic Acid Calcium Total Bilirubin AST ALT Alkaline Phosphatase Total Protein Albumin Globulin Albumin/Globulin Ratio Procalcitonin 0.22 Orders Category Date Time Status BLOOD CULTURE (ED ONLY) Stat LAB 10/27/17 22:50 Received CBC W/ AUTO DIFF Stat LAB 10/27/17 22:50 Completed COMPREHENSIVE METABOLIC PANEL Stat LAB 10/27/17 22:50 Completed LACTIC ACID Stat LAB 10/27/17 22:50 Completed PROCALCITONIN Stat LAB 10/27/17 22:50 Completed UA [URINALYSIS C & S IF INDICATED] Stat LAB 10/27/17 23:36 Uncollected Ceftriaxone Sodium [Rocephin] MEDS 10/27/17 23:36 Discontinued 1 gm IM ONCE STA Lidocaine HCl/Pf [Lidocaine HCl 1% Sdv] MEDS 10/27/17 23:36 Discontinued 2.1 ml IM ONCE STA Sulfamethoxazole/Trimethoprim [Bactrim Ds 800/160 mg] MEDS 10/27/17 23:36 Discontinued 1 tab PO ONCE STA CHEST, 2 VIEWS PA & LAT Stat RADS 10/27/17 23:29 Completed Medications Discontinued Medications Generic Name Dose Route Start Last Admin Trade Name Wilmar PRN Reason Stop Dose Admin Ceftriaxone Sodium 1 gm 10/27/17 23:36 10/27/17 23:57 Rocephin IM 10/27/17 23:37 1 gm ONCE STA Administration Lidocaine HCl 2.1 ml 10/27/17 23:36 10/27/17 23:57 Lidocaine Hcl 1% Sdv IM 10/27/17 23:37 2.1 ml ONCE STA Administration Trimethoprim/Sulfamethoxazole 1 tab 10/27/17 23:36 10/27/17 23:58 Bactrim Ds 800/160 Mg PO 10/27/17 23:37 Not Given ONCE STA Vital Signs: Temp Pulse Resp BP Pulse Ox 10/27/17 22:22 102.8 F H 111 H 24 144/78 H 92 L Departure - Departure Time of Disposition: 23:33 Disposition: HOME SELF-CARE Discharge Problem: Fever Cellulitis Qualifiers: Site of cellulitis: extremity Site of cellulitis of extremity: upper extremity Laterality: right Qualified Code(s): L03.113 - Cellulitis of right upper limb Instructions: Cellulitis (ED) Condition: Stable Pt referred to PMD for follow-up: Yes IPMP verified?: No Additional Instructions: continue f/u with wound care. Allergies/Adverse Reactions: Allergies dicyclomine Allergy (Severe, Unverified 10/27/17 22:34) hurt stomach Patient will notify drugstore clindamycin Allergy (Intermediate, Unverified 10/27/17 22:34) did not feel good, ampicillin Adverse Reaction (Verified 10/27/17 22:34) codeine Adverse Reaction (Verified 10/27/17 22:34) Swelling Sulfa (Sulfonamide Antibiotics) Adverse Reaction (Verified 10/27/17 22:34) Itching Home Medications: Ambulatory Orders Citalopram Hydrobromide [Celexa] 20 mg PO DAILY 10/18/13 Guaifenesin/Dextromethorphan [Guaifenesin Dm Syrup] 10 ml PO Q4H PRN #120 ml Levofloxacin [Levaquin] 750 mg PO DAILY #7 tablet 09/14/16 Disposition Discussed With: Patient, Family
[2017-10-27] MEDS ORDERED: ROCEPHIN IM STA (23:36)
[2017-10-27] MEDS ORDERED: BACTRIM DS 800/160 MG PO STA (23:36)
[2017-10-27] MEDS ORDERED: LIDOCAINE HCL 1% SDV IM STA (23:36)
--- NOTE | 2017-10-27 23:56 | DI ---
EXAM: Chest two views HISTORY: Fever FINDINGS: Normal cardiac and mediastinal contours. Normal pulmonary vasculature. Lungs are clear. No significant abnormality of the bony thorax. IMPRESSION: Chest radiograph within normal limits.
[2017-10-28] MEDS ORDERED: ZYVOX PO ONE (00:01)
[2017-10-28] MEDS ORDERED: TYLENOL PO STA (00:11)
[2017-10-28 01:15] VITALS: TEMP 100.4
== END 2017-10-28 01:10 | disposition home or self-care (01) ==
LOC: ED 22:20
DX: L03.113 Cellulitis of right upper limb (principal); R50.9 Fever, unspecified; F17.210 Nicotine dependence, cigarettes, uncomplicated; E11.9 Type 2 diabetes mellitus without complications; I10 Essential (primary) hypertension
CPT/HCPCS: 36415; 80053; 81001; 83605; 84145; 85025; 87040; 96372; 99283

== ENCOUNTER 2017-11-13 13:26 | Outpatient (CLI) ==
--- NOTE | 2017-11-13 14:04 | CT ---
EXAM: CT of the head without contrast History: Dizziness and giddiness Technique: Multiplanar CT images through the head were obtained without the administration of IV con trast Findings: The visualized paranasal sinuses and mastoid air cells are clear in general. No acute matthew varial abnormalities. Intracranially the ventricular and cisternal spaces are normal in size, shape and configuration for a patient of this age. No dominant mass or midline shift. No hydrocephalous. No acute intracranial hemorrhage or abnormal extraaxial fluid collections. Impression: No acute intracranial process.
== END 2017-11-13 13:27 | disposition home or self-care (01) ==
LOC: RAD 13:26
PROVIDERS: ATTEND Emergency Medicine
DX: R42 Dizziness and giddiness (principal)

== ENCOUNTER 2017-12-04 08:53 | Outpatient (CLI) | END 2017-12-04 08:54 | disposition home or self-care (01) | LOC: LAB 08:53 | PROVIDERS: ATTEND Emergency Medicine | DX: E11.9 Type 2 diabetes mellitus without complications (principal); E78.5 Hyperlipidemia, unspecified; F41.9 Anxiety disorder, unspecified | CPT/HCPCS: 36415; 80053; 80061; 83036; 84443; 85025 ==

== ENCOUNTER 2018-01-01 10:45 | Outpatient (CLI) | END 2018-01-01 10:46 | disposition home or self-care (01) | LOC: LAB 10:45 | PROVIDERS: ATTEND Emergency Medicine | DX: N41.0 Acute prostatitis (principal) | CPT/HCPCS: 36415; 81001; 85025; 87086; 87186 ==

== ENCOUNTER 2018-01-02 15:34 | Outpatient (CLI) | END 2018-01-02 15:35 | disposition home or self-care (01) | LOC: RHC-LAB 15:34 | PROVIDERS: ATTEND Emergency Medicine | DX: Z12.5 Encounter for screening for malignant neoplasm of prostate (principal) | CPT/HCPCS: 36415 ==

== ENCOUNTER 2018-01-04 09:19 | Outpatient (CLI) ==
--- NOTE | 2018-01-04 10:11 | CT ---
EXAM: CT of the abdomen pelvis without contrast History: Lower abdominal pain. Penile and scrotal pain Technique: Multiplanar CT images through the abdomen pelvis were obtained without the administration of IV contrast Findings: Lung bases are free of consolidation. Coronary calcifications. No acute osseous abnormal ities. 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 Possible cholelithiasis. No focal liver or splenic lesions. No peripancreatic inflammation. Adrena l glands are unremarkable. Punctate 1 mm right renal calculus. No hydronephrosis. There are multip le fluid density right renal cysts with the largest measuring 8.2 cm x 5.4 cm. Nonspecific bilateral perinephric stranding. No ureteral calculi. Atherosclerotic vascular calcifications. No bladder w all thickening. Prostate is not significantly enlarged. Scattered colonic stool. Colonic diverticu losis. The appendix is normal. Short segment wall thickening of the sigmoid colon best seen on axia l image number 81. No perirectal inflammation. No obvious abnormality of the penis and scrotum is i dentified by CT. Impression: 1. No obvious abnormality of the penis or scrotum is identified by CT. If symptoms persist, recommen d further evaluation with ultrasound. 2. Short segment wall thickening of the sigmoid colon could be due to incomplete distension or neopl asm. Recommend colonoscopy. 3. Colonic diverticulosis. 4. Nonspecific bilateral perinephric stranding. Correlate with renal function tests. 5. Fluid density simple appearing right renal cysts. Evaluation of the renal parenchyma is limited due to lack of IV contrast. 6. Possible cholelithiasis. 7. 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
== END 2018-01-04 09:20 ==
LOC: RAD 09:19
PROVIDERS: ATTEND Emergency Medicine
DX: R10.30 Lower abdominal pain, unspecified (principal); N41.0 Acute prostatitis

== ENCOUNTER 2018-07-20 07:51 | Outpatient (CLI) | END 2018-07-20 07:52 | disposition home or self-care (01) | LOC: LAB 07:51 | PROVIDERS: ATTEND Nurse Practitioner Family | DX: E11.9 Type 2 diabetes mellitus without complications (principal); E66.9 Obesity, unspecified; E78.5 Hyperlipidemia, unspecified; E78.1 Pure hyperglyceridemia | CPT/HCPCS: 36415; 80053; 80061; 83036; 84443; 85025 ==

== ENCOUNTER 2018-11-02 11:05 | Outpatient (CLI) | payer OTHER | END 2018-11-02 11:06 | disposition home or self-care (01) | LOC: LAB 11:05 | PROVIDERS: ATTEND Nurse Practitioner Family | DX: E11.9 Type 2 diabetes mellitus without complications (principal); E66.9 Obesity, unspecified | CPT/HCPCS: 36415; 80053; 83036; 85025 ==

== ENCOUNTER 2019-01-18 11:43 | Outpatient (CLI) | END 2019-01-18 11:44 | disposition home or self-care (01) | LOC: RHC-LAB 11:43 | PROVIDERS: ATTEND Nurse Practitioner Family | DX: J02.9 Acute pharyngitis, unspecified (principal) | CPT/HCPCS: 87651 ==

== ENCOUNTER 2024-02-06 09:17 | Observation (INO) ==
--- NOTE | 2024-02-06 09:46 | ED.PDOC ---
General ED Provider: Dr. ROGER MCGARRY MD Chief Complaint: Cellulitis Stated Complaint: Patient with history of type 2 diabetes, hypertension, COPD, chronic renal sufficiency, chronic left lower extremity cellulitis has been on numerous antibiotics for cellulitis with no improvement. Patient's failed outpatient therapy. Patient on date 02/16/2024 had a negative venous Doppler for DVT left extremity. Patient denies fever and chills. Time Seen by Provider: 02/06/24 09:35 Mode of Arrival: Walk-In Information Source: Patient Exam Limitations: Clinical condition Primary Care Provider: JEFF EDWARDS APRN,[facility] Nursing and Triage Documentation Reviewed and Agree: Yes What is Opioid Naive?: *Opioid Naive implies the patient is not already taking opioids or not chronically receiving opioids on a daily basis. *PRN dosing is not "usually" associated with tolerance. *Patients are at higher risk of over-sedation and aspiration. What is Opioid Tolerant?: *Opioid Tolerance implies less than the expected response to an opioid. *Acquired tolerance is defined by the patient taking 60mg of oral morphine daily (or equianalgesic dose of another opioid) for 1 week or more. *Often associated with chronic pain. *May take more than usual dose to achieve desired pain control. Review of Systems Review Of Systems Constitutional: Reports No symptoms Eyes: Reports No symptoms Ears, Nose, Mouth, Throat: Reports No symptoms Respiratory: Reports No symptoms Cardiac: Reports No symptoms GI: Reports No symptoms : Reports No symptoms Musculoskeletal: Reports Other (Left lower extremity swelling with redness) Skin: Reports Other ( redness and warmth of the left lower extremity) Neurological: Reports No symptoms Endocrine: Reports No symptoms Hematologic/Lymphatic: Reports No symptoms All Other Systems: Reviewed and Negative [facility] Medical History Non-insulin dependent type 2 diabetes mellitus E11.9 - Type 2 diabetes mellitus without complications (ICD-10) Hyperlipidemia E78.5 - Hyperlipidemia, unspecified (ICD-10) Depression F32.9 - Major depressive disorder, single episode, unspecified (ICD-10) Family History Mother , aneurysm Aneurysm Hypertension FATHER , aneurysm Aneurysm BROTHER , cancer Cancer unknown MATERNAL GRANDMOTHER Cancer stomach BROTHER No problems noted. BROTHER Obesity Pacemaker SISTER , Heart attack. No problems noted. Social History Smoking and tobacco status: Former smoker Tobacco: How many years used: 50 Smokeless tobacco user: chewing tobacco How long ago did patient quit smoking: still occaisonally smokes with company. Doesn't buy them Quit status: considering quitting Second hand smoke exposure: No Smoking risk assessment performed: No Alcohol intake: never Counseling given: No Counseling provided: none Substance use type: does not use Counseling given: No Counseling provided: none Isadora/rastafari: HOAHAOISM Special isadora needs: No Agree to transfusion: Yes Adopted: No Caregiver/support person: No Foster care: No Household members: spouse Housing: house Marital status: M Lives independently: No Daycare: no daycare Number of children: 2 Number of grandchildren: 9 Highest education level completed: 8th grade Financial difficulty paying for basics: very hard service: No longterm: No Current occupational status: unemployed and retired Previous occupational history: [employer] Pets and animals: Yes (dogs) Leisure activites: fishing and other History of recent travel: No Sexually active: Yes Do you think of yourself as: straight/heterosexual Current gender identity: male Seatbelt use: always Helmet use: No Drives intoxicated or rides with intoxicated water truck driver: No Water heater temperature set < 120 degrees: Yes Working smoke detector in home: Yes Fire extinguisher in home: Yes Carbon monoxide detector in home: Yes Firearms in home: Yes Firearms unloaded and locked: Yes What type of physical activity do you participate in?: none and walking Physical activity functional status: independent ambulation How many days of moderate to strenuous exercise, like a brisk walk, did you do in the last 7 days: 0 Physical Exam Physical Exam Appearance: Reports Well-appearing Ill-appearing: None Pain Distress: None Eyes: Reports DARIUS, EOMI and Conjunctiva clear ENT: Reports Ears normal, Nose normal and Oropharynx normal Neck: Supple Respiratory: Reports Airway patent, Breath sounds clear and Breath sounds equal Cardiovascular: Reports RRR, Pulses normal, No rub and No murmur GI/: Reports Soft, Nontender, No masses, Bowel sounds normal and No Organomegaly Musculoskeletal: Reports Other (Left lower extremity mid diameter of the goodman and calf is 43 cm compared to 42 on the right. There is erythema from the proximal distal left goodman with warmth. Minimal calf tenderness noted. Bilateral popliteal pedis pulses 2+.) Skin: Reports Warm Neurological: Reports Sensation intact, Motor intact, Reflexes intact, Cranial nerves intact, Alert and Oriented Psychiatric: Reports Affect appropriate Critical Care Note Critical Care Note Total Critical Care Time (mins): 30 Course Course 02/06/24 10:04 02/06/24 10:04 Orders, Labs, Meds: Lab Review 02/06/24 02/06/24 10:02 10:04 WBC 7.29 RBC 3.89 L Hgb 11.5 L Hct 37.2 L MCV 95.6 H MCH 29.6 MCHC 30.9 L RDW Coeff of Yolanda 14.1 Plt Count 296 Immature Gran % (Auto) 0.4 Neut % (Auto) 74.9 Lymph % (Auto) 14.7 [place] % (Auto) 6.9 Eos % (Auto) 2.6 Baso % (Auto) 0.5 Neut # (Auto) 5.5 Lymph # (Auto) 1.1 [place] # (Auto) 0.5 Eos # (Auto) 0.2 Baso # (Auto) 0.0 Immature Gran # (Auto) 0.0 Sodium 137.4 Potassium 4.14 Chloride 104.7 Carbon Dioxide 29.2 Anion Gap 7.64 BUN 15.9 Creatinine 1.07 Estimated GFR (MDRD) 68.00 BUN/Creatinine Ratio 14.85 Glucose 131.1 H Calcium 8.85 Total Bilirubin 0.44 AST 28.6 ALT 23.5 Alkaline Phosphatase 56.6 Total Protein 6.63 Albumin 3.68 Globulin 2.95 Albumin/Globulin Ratio 1.24 SARS CoV-2 RNA Rapid WILMAR Negative Orders Category Date Time Status NPO REMINDER: IMAGING ONCE CARE 02/06/24 11:15 Active Saline Lock [ED IV/MEDIPORT/POWERPORT] .ONCE EMERGENCY 02/06/24 09:46 Active BLOOD CULTURE (ED ONLY) Stat LAB 02/06/24 10:20 Received CBC W/ AUTO DIFF Stat LAB 02/06/24 10:04 Completed CMP [COMPREHENSIVE METABOLIC PANEL] Stat LAB 02/06/24 10:04 Completed COVID [SARS COV-2 RNA RAPID WILMAR] Stat LAB 02/06/24 10:02 Completed 0.9 % Sodium Chloride [Saline Flush] Meds 02/06/24 09:46 Active 1 syr IVF PRN PRN Vancomycin/Water For Inj (Peg) [Vancomycin 1 Gram/200 Meds 02/06/24 09:46 Discontinued ml Premix] 1 gm in [address] TIB/FIB LEFT W/CONTRAST Stat RADS 02/06/24 11:13 Completed Medications Generic Name Dose Route Start Last Admin Trade Name Freq PRN Reason Stop Dose Admin Sodium Chloride 1 syr 02/06/24 09:46 0.9% Sodium Chloride 10 Ml Disp.Syrin IVF PRN PRN To flush IV Discontinued Medications Generic Name Dose Route Start Last Admin Trade Name Freq PRN Reason Stop Dose Admin VANCOMYCIN/WATER FOR INJ (PEG) 1 gm in 200 mls @ 200 mls/hr 02/06/24 09:46 02/06/24 10:24 Vancomycin 1 Gram/200 Ml Premix IV 02/06/24 10:45 200 mls/hr ONCE ONE Administration Vital Signs: Temp Pulse Resp BP Pulse Ox 02/06/24 09:19 97.7 F 79 20 119/68 96 Discharge Plan Discharge Patient Disposition: PLACED OBSERVATION Discharge Problem: Cellulitis of left leg Prescriptions: No Action (DME) lancing device with lancets [Cartouruch Delica Lanc Device] 1 EACH kit 1 ea MC TID Qty: 100 (DME) comp.stocking,knee,long,medium Misc See Rx Instructions .ROUTE Qty: 12 0RF Rx Instructions: As directed (DME) Blood Glucose Test Strip 1 ea 1-3XD Qty: 100 0RF Rx Instructions: accucheck three times daily and as needed albuterol sulfate 2.5 mg /3 mL (0.083 %) solution for nebulization 2.5 mg inhalation Q4-6H PRN (Reason: shortness of breath or wheezing- copd J44.10 ) Qty: 180 1RF Rx Instructions: ICD J44.10 mupirocin 2 % ointment See Rx Instructions .ROUTE .COMPLEX Qty: 22 2RF Dose Instruction: APPLY TO AFFECTED AREA TOPICALLY TWICE DAILY TO, CUTS AND SCRAPES NEEDED GENERIC FOR BACTROBAN Rx Instructions: APPLY TO AFFECTED AREA TOPICALLY TWICE DAILY TO, CUTS AND SCRAPES NEEDED GENERIC FOR BACTROBAN betamethasone valerate 0.1 % cream 1 applic topical BID Qty: 45 0RF atorvastatin 40 mg tablet See Rx Instructions .ROUTE .COMPLEX Qty: 30 5RF Dose Instruction: TAKE ONE TABLET ORALLY EVERY DAY AT BEDTIME; STOP 20 MG DOSAGE, CHANGE TO 40 MG BY MOUTH NIGHTLY Rx Instructions: TAKE ONE TABLET ORALLY EVERY DAY AT BEDTIME; STOP 20 MG DOSAGE, CHANGE TO 40 MG BY MOUTH NIGHTLY fluoxetine 20 mg capsule See Rx Instructions .ROUTE .COMPLEX Qty: 90 1RF Dose Instruction: TAKE 1 CAPSULE DAILY Rx Instructions: TAKE 1 CAPSULE DAILY pantoprazole 40 mg tablet,delayed release (DR/EC) See Rx Instructions .ROUTE .COMPLEX Qty: 90 1RF Dose Instruction: TAKE ONE TABLET DAILY Rx Instructions: TAKE ONE TABLET DAILY montelukast 10 mg tablet See Rx Instructions .ROUTE .COMPLEX Qty: 90 1RF Dose Instruction: TAKE ONE TABLET DAILY GENERIC FOR SINGULAR Rx Instructions: TAKE ONE TABLET DAILY GENERIC FOR SINGULAR fluticasone propionate 50 mcg/actuation spray,suspension See Rx Instructions .ROUTE .COMPLEX Qty: 16 2RF Dose Instruction: USE TWO SPRAYS IN EACH NOSTRIL DAILY Rx Instructions: USE TWO SPRAYS IN EACH NOSTRIL DAILY albuterol sulfate 90 mcg/actuation HFA aerosol inhaler See Rx Instructions .ROUTE .COMPLEX Qty: 6.7 2RF Dose Instruction: INHALE 2 PUFFS EVERY FOUR TO SIX HOURS NEEDED FOR SHORTNESS OF BREATH OR WHEEZING FOR 30 DAYS Rx Instructions: INHALE 2 PUFFS EVERY FOUR TO SIX HOURS NEEDED FOR SHORTNESS OF BREATH OR WHEEZING FOR 30 DAYS (DME) pen needle, diabetic [Easy Touch Pen Needle] 30 gauge x 5/16" needle See Rx Instructions .ROUTE Qty: 100 2RF Rx Instructions: As directed for GLP1 and insulin injections, dm2 Trelegy Ellipta 200-62.5-25 mcg blister with device See Rx Instructions .ROUTE .COMPLEX Qty: 60 2RF Dose Instruction: USE 1 PUFF EVERY 24 HOURS Rx Instructions: USE 1 PUFF EVERY 24 HOURS lisinopril 20 mg tablet See Rx Instructions .ROUTE .COMPLEX Qty: 90 0RF Dose Instruction: TAKE ONE TABLET DAILY Rx Instructions: TAKE ONE TABLET DAILY Mounjaro 5 mg/0.5 mL pen injector 5 mg subcut QWEEK 30 Days Qty: 2 2RF Rx Instructions: 5 mg subcutaneously weekly cyclobenzaprine 10 mg tablet 10 mg PO TID PRN (Reason: muscle spasm) Qty: 90 0RF furosemide 40 mg tablet 40 mg PO QAM Qty: 30 5RF dicyclomine 20 mg tablet 20 mg PO TID Qty: 90 2RF silver sulfadiazine 1 % cream 1 applic topical BID Qty: 85 0RF Rx Instructions: apply a 1.5 mm thickness-apply thin layer to the left lower extremity twice daily after cleaning the left lower extremity with antibacterial liquid soap and warm water, pat dry, then apply thin layer of silvadene cream tramadol 50 mg tablet 50 mg PO BID PRN (Reason: pain) Qty: 60 0RF gabapentin 800 mg tablet 800 mg PO 3XD Qty: 90 2RF (DME) OneTouch Ultra Test Strip See Rx Instructions .ROUTE Qty: 100 2RF Rx Instructions: Use three times daily insulin glargine [Lantus Solostar U-100 Insulin] 100 unit/mL (3 mL) insulin pen See Rx Instructions .ROUTE .COMPLEX Qty: 30 2RF Dose Instruction: INJECT 45 UNIT (0.45 ML) SUBCUTANEOUSLY TWICE A DAY FOR DMII Rx Instructions: INJECT 40 UNIT (0.45 ML) SUBCUTANEOUSLY TWICE A DAY FOR DMII-dosage change (DME) blood-glucose meter Misc See Rx Instructions .ROUTE .MEDSUPPLY Qty: 1 0RF Rx Instructions: three times daily and As directed lancets [OneTouch Delica Lancets] 33 gauge misc See Rx Instructions .ROUTE .COMPLEX Qty: 100 2RF Dose Instruction: TEST THREE TIMES DAILY Rx Instructions: TEST THREE TIMES DAILY triamcinolone acetonide 0.1 % ointment 1 applic topical QDAY PRN (Reason: lower extremiity redness ) Qty: 453.6 0RF Did you review [place] PROGRAM SPECIALIST for ALL controlled substances?: Not Applicable ED Provider: ROGER MCGARRY Condition: Stable Physician Progress Note: history obtained from the patient is a history of chronic renal sufficiency, hypertension, type 2 diabetes, COPD, chronic low back pain, has had chronic left lower cellulitis with past several months a recent venous Doppler left lower extremity on date 01/30/2024 and has had no improvement with taking outpatient antibiotics. Showed no evidence of DVT. Saline lock was administered on the 2 sets of blood cultures obtained Patient given vancomycin [address] scan of the left tibia-fibula with IV contrast interpretation by radiology shows no evidence of fluid collection abscess or osteomyelitis. There is soft tissue swelling noted. All laboratory data reviewed CBC CMP and open normal limits. Differential diagnosis: 1) recurrent cellulitis left lower extremity 2) failed outpatient therapy Discussed with hospitalist Teto Jones at 1245 from the patient
[2024-02-06 10:09] LABS: BASOPHILS % (AUTO) 0.5 % (0.0-3.0); EOSINOPHILS # (AUTO) 0.2 K/ul (0.0-0.7); EOSINOPHILS % (AUTO) 2.6 % (0.0-7.0); HEMATOCRIT 37.2 % (42.0-52.0); HEMOGLOBIN 11.5 g/dl (14.0-18.0); IMMATURE GRANULOCYTE % (AUTO) 0.4 % (0.0-5.0); LYMPHOCYTES # (AUTO) 1.1 K/uL (0.60-3.4); LYMPHOCYTES % (AUTO) 14.7 (10.0-50.0); MEAN CORPUSCULAR HEMOGLOBIN 29.6 pg (27.0-31.0); MEAN CORPUSCULAR HGB CONC 30.9 (31.8-35.4); MEAN CORPUSCULAR VOLUME 95.6 fl (80.0-94.0); MONOCYTES # (AUTO) 0.5 K/uL (0.4-2.0); MONOCYTES % (AUTO) 6.9 (0-10); NEUTROPHILS # (AUTO) 5.5 K/ul (2.0-6.9); NEUTROPHILS % (AUTO) 74.9 % (42.2-75.2); PLATELET COUNT 296 10^3/uL (140-440); RDW COEFFICIENT OF VARIATION 14.1 % (11.6-14.8); RED BLOOD COUNT 3.89 10^6/ul (4.70-6.10); WHITE BLOOD COUNT 7.29 K/ul (4.2-10.2)
[2024-02-06 10:21] LABS: ALANINE AMINOTRANSFERASE 23.5 U/L (0-50); ALBUMIN 3.68 g/dL (3.5-5.0); ALKALINE PHOSPHATASE 56.6 U/L (56-119); ASPARTATE AMINO TRANSFERASE 28.6 U/L (17-59); BILIRUBIN,TOTAL 0.44 mg/dL (0.2-1.3); BLOOD UREA NITROGEN 15.9 mg/dL (9-20); CALCIUM 8.85 mg/dL (8.4-10.2); CARBON DIOXIDE 29.2 mmol/L (22-30.0); CHLORIDE 104.7 mmol/L (98-107); CREATININE 1.07 mg/dL (0.60-1.10); GLUCOSE 131.1 mg/dL (74-106); POTASSIUM 4.14 mmol/L (3.5-5.1); SODIUM 137.4 mmol/L (134.5-145); TOTAL PROTEIN 6.63 g/dL (6.3-8.2)
[2024-02-06] MEDS: VANCOMYCIN 1 GRAM/200 ML PREMIX 1 GM/200 ML BAG IV ONE (10:24)
[2024-02-06 11:11] LABS: SARS COV-2 RNA RAPID NAAT NEGATIVE (NEGATIVE)
--- NOTE | 2024-02-06 12:37 | CT ---
EXAM: CT LEFT TIBIA AND FIBULA WITH CONTRAST. HISTORY: Suspected infection. Left lower leg pain. TECHNIQUE: Helical axial sections were obtained through the tibia and fibula with iodinated intraveno us contrast enhancement. Coronal and sagittal reformatted images were obtained from the axial source images. Images were reviewed on a high-resolution PACS workstation. DICOM images are available. C T Dose Reduction Techniques Performed: Yes. COMPARISON: None. FINDINGS: There is severe diffuse cellulitis with skin thickening and subcutaneous edema from the kne e through the visualized portions of the ankle. No definite focal fluid collection or abscess. No h igh density material to suggest hematoma. No intra fascial fluid or soft tissue gas appreciated. No significant knee joint effusion. Popliteal artery and trifurcation vessels appear grossly patent.. Osseous structures are intact. No evidence of osteomyelitis. Visualized portions of the knee and ank le joints appear grossly unremarkable. IMPRESSION: Diffuse cellulitis. No evidence of focal fluid collection, abscess, or osteomyelitis. All CT scans are performed using dose optimization techniques as appropriate to the performed exam an d include at least one of the following: Automated exposure control, adjustment of the mA and/or kV according t o size, and the use of iterative reconstruction technique.
[2024-02-06] MEDS ORDERED: TYLENOL PO PRN (13:18)
[2024-02-06 14:15] VITALS: BMI 34.8
--- NOTE | 2024-02-06 14:56 | PCM ---
Date of Service Date Seen by Provider: 02/06/24 Time Seen by Provider: 14:00 Admit Day/Time Admission Date: 02/06/24 Reason for Admission Chief Complaint: CELLULITIS LEFT LOWER LEG Hospital Provider Hospital Provider: KATLYN LUDWIG, [facility] [place] Primary Care Physician Primary Care Physician: JEFF EDWARDS APRN,[facility] History of Present Illness History of Present Illness: 73 yo male with pmh of DM2, COPD, and HTN presented to the ER with cellulitis to E. Follows with wound care and was treated with Zyvox started on 02/01/24 and developed an allergic reaction with diffuse hives. Stopped yesterday 02/05/24. Ordered lasix BID x 3 days initially and then ordered to continue to assist with swelling. Ulcers initially present and with drainage - on 02/05/24 no further antibiotics continued due to decrease in ulcers and less drainage present. Wound culture completed to same area on 12/19 that showed growth of staph haemolyticus that is sensitive to vancomycin. WBC normal today. CT shows cellulitis without abscess. Unable to culture wound at this time due to no draining areas. He was given vancomycin in the ER. Admitted to med/surg observation. Case Discussed With Case Discussed With: Patient's case was discussed with the ER Physicians, Dr. Lopes. [facility] Medical History Non-insulin dependent type 2 diabetes mellitus E11.9 - Type 2 diabetes mellitus without complications (ICD-10) Hyperlipidemia E78.5 - Hyperlipidemia, unspecified (ICD-10) Depression F32.9 - Major depressive disorder, single episode, unspecified (ICD-10) Family History Mother , aneurysm Aneurysm Hypertension FATHER , aneurysm Aneurysm BROTHER , cancer Cancer unknown MATERNAL GRANDMOTHER Cancer stomach BROTHER No problems noted. BROTHER Obesity Pacemaker SISTER , Heart attack. No problems noted. Social History Smoking and tobacco status: Former smoker Tobacco: How many years used: 50 Smokeless tobacco user: chewing tobacco How long ago did patient quit smoking: still occaisonally smokes with company. Doesn't buy them Quit status: considering quitting Second hand smoke exposure: No Smoking risk assessment performed: No Alcohol intake: never Counseling given: No Counseling provided: none Substance use type: does not use Counseling given: No Counseling provided: none Isadora/mormon: UATSDIN Special isadora needs: No Agree to transfusion: Yes Adopted: No Caregiver/support person: No Foster care: No Household members: spouse Housing: house Marital status: M Lives independently: No Daycare: no daycare Number of children: 2 Number of grandchildren: 9 Highest education level completed: 8th grade Financial difficulty paying for basics: very hard service: No group home: No Current occupational status: unemployed and retired Previous occupational history: [employer] Pets and animals: Yes (dogs) Leisure activites: fishing and other History of recent travel: No Sexually active: Yes Do you think of yourself as: straight/heterosexual Current gender identity: male Seatbelt use: always Helmet use: No Drives intoxicated or rides with intoxicated mail truck driver: No Water heater temperature set < 120 degrees: Yes Working smoke detector in home: Yes Fire extinguisher in home: Yes Carbon monoxide detector in home: Yes Firearms in home: Yes Firearms unloaded and locked: Yes What type of physical activity do you participate in?: none and walking Physical activity functional status: independent ambulation How many days of moderate to strenuous exercise, like a brisk walk, did you do in the last 7 days: 0 Allergies Allergies Allergy/AdvReac Type Severity Reaction Status Date / Time clindamycin Allergy Intermediate Unknown Verified 02/06/24 09:25 dextrose 5 % in water AdvReac Severe Rash Verified 02/06/24 09:25 [From Zyvox] linezolid [From Zyvox] AdvReac Severe Rash Verified 02/06/24 09:25 ampicillin AdvReac Unknown Verified 02/06/24 09:25 codeine AdvReac Swelling Verified 02/06/24 09:25 Sulfa (Sulfonamide AdvReac Itching Verified 02/06/24 09:25 Antibiotics) Current Medications Home Medications lancing device with lancets kit (Audiam Lancing Device kit) ##100 10/03/17 [History Confirmed 02/06/24 Last Taken Unknown] blood-glucose meter #1 ea 06/11/20 [Rx Confirmed 02/06/24 Last Taken Unknown] lancets 33 gauge (OneTouch Delica Lancets) See Rx Instructions .Route .COMPLEX ##100 09/28/20 [Rx Confirmed 02/06/24 Last Taken Unknown] comp.stocking,knee,long,medium #12 ea 02/27/21 [Rx Confirmed 02/06/24 Last Taken Unknown] blood sugar diagnostic (Blood Glucose Test strips) #100 strips 04/20/21 [Rx Confirmed 02/06/24 Last Taken Unknown] albuterol sulfate 2.5 mg/3 mL (0.083 %) solution for nebulization 2.5 mg (3 mL) inhalation Q4-6H PRN shortness of breath or wheezing- copd J44.10 #180 mL 01/19/22 [Rx Confirmed 02/06/24 Last Taken Unknown] triamcinolone acetonide 0.1 % topical ointment 1 applic topical QDAY PRN lower extremiity redness #453.6 grams 05/31/22 [Rx Confirmed 02/06/24 Last Taken 02/05/24 08:00 1 applic] blood sugar diagnostic (OneTouch Ultra Test strips) #100 ea 04/25/23 [Rx Confirmed 02/06/24 Last Taken Unknown] mupirocin 2 % topical ointment See Rx Instructions .Route .COMPLEX #22 ea 05/07/23 [Rx Confirmed 02/06/24 Last Taken Unknown] betamethasone valerate 0.1 % topical cream 1 applic topical BID rash #45 grams 06/08/23 [Rx Confirmed 02/06/24 Last Taken 02/05/24 20:00 1 applic] atorvastatin 40 mg tablet See Rx Instructions .Route .COMPLEX #30 tabs 08/24/23 [Rx Confirmed 02/06/24 Last Taken 02/05/24 09:00 40 mg] fluoxetine 20 mg capsule See Rx Instructions .Route .COMPLEX #90 caps 08/24/23 [Rx Confirmed 02/06/24 Last Taken 02/05/24 08:00 20 mg] pantoprazole 40 mg tablet,delayed release See Rx Instructions .Route .COMPLEX #90 tabs 08/24/23 [Rx Confirmed 02/06/24 Last Taken 02/05/24 08:00 40 mg] montelukast 10 mg tablet See Rx Instructions .Route .COMPLEX #90 tabs 10/19/23 [Rx Confirmed 02/06/24 Last Taken 02/05/24 08:00 10 mg] albuterol sulfate 90 mcg/actuation aerosol inhaler See Rx Instructions .Route .COMPLEX #6.7 grams 11/16/23 [Rx Confirmed 02/06/24 Last Taken 02/06/24 08:00 2 puffs] pen needle, diabetic 30 gauge x 5/16" (Easy Touch Pen Needle) #100 ea 11/16/23 [Rx Confirmed 02/06/24 Last Taken Unknown] fluticasone fur. 200 mcg-umeclid 62.5 mcg-vilant 25 mcg inhalat.powder (Trelegy Ellipta) See Rx Instructions .Route .COMPLEX #60 ea 12/14/23 [Rx Confirmed 02/06/24 Last Taken 02/05/24 08:00 1 puff] lisinopril 20 mg tablet See Rx Instructions .Route .COMPLEX #90 tabs 12/14/23 [Rx Confirmed 02/06/24 Last Taken 02/05/24 08:00 20] insulin glargine 100 unit/mL (3 mL) subcutaneous pen (Lantus Solostar U-100 Insulin) See Rx Instructions .Route .COMPLEX dm2 #30 ea 12/20/23 [Rx Confirmed 02/06/24 Last Taken 02/05/24 17:00 40] tirzepatide 5 mg/0.5 mL subcutaneous pen injector (Rickieunchadro) 5 mg (0.5 mL) subcut QWEEK DM2 1 month #2 ea 12/28/23 [Rx Confirmed 02/06/24 Last Taken 02/03/24 08:00 5 mg] cyclobenzaprine 10 mg tablet 10 mg PO TID PRN muscle spasm #90 tabs 01/11/24 [Rx Confirmed 02/06/24 Last Taken 02/05/24 08:00 10 mg] furosemide 40 mg tablet 40 mg PO QAM #30 tabs 01/11/24 [Rx Confirmed 02/06/24 Last Taken 02/06/24 08:00 40 mg] dicyclomine 20 mg tablet 20 mg PO TID #90 tabs 01/23/24 [Rx Confirmed 02/06/24 Last Taken 02/05/24 21:00 20 mg] silver sulfadiazine 1 % topical cream 1 applic topical BID left lower extremity #85 grams 01/25/24 [Rx Confirmed 02/06/24 Last Taken 02/05/24 08:00 1 applic] gabapentin 800 mg tablet 800 mg PO 3XD #90 tabs 02/05/24 [Rx Confirmed 02/06/24 Last Taken 02/05/24 08:00 800 mg] tramadol 50 mg tablet 50 mg PO BID PRN pain #60 tabs 02/05/24 [Rx Confirmed 02/06/24 Last Taken 02/05/24 08:00 50 mg] fluticasone propionate 50 mcg/actuation nasal spray,suspension 1 spray intranasal BID PRN nasal congestion 02/06/24 [History Confirmed 02/06/24 Last Taken 02/05/24 08:00 2 sprays] metformin 500 mg tablet 500 mg PO 2XD 02/06/24 [History Confirmed 02/06/24 Last Taken 02/05/24 21:00 500 mg] Home Acetaminophen (Acetaminophen 325 Mg Tablet) 650 mg PO Q4H PRN PRN Reason: Mild Pain VANCOMYCIN/WATER FOR INJ (PEG) (Vancomycin 1 Gram/200 Ml Premix) 1 gm in 200 mls @ 200 mls/hr IV Q12HR RIGO Stop: 02/09/24 20:59 Insulin Human Regular (Insulin Regular, Human 100 Unit/Ml (10ml) Vial) 0 unit SUBCUT PRN PRN; Protocol PRN Reason: Hyperglycemia Sodium Chloride (0.9% Sodium Chloride 10 Ml Disp.Syrin) 1 syr IVF PRN PRN PRN Reason: To flush IV Discontinued Medications VANCOMYCIN/WATER FOR INJ (PEG) (Vancomycin 1 Gram/200 Ml Premix) 1 gm in 200 mls @ 200 mls/hr IV ONCE ONE Stop: 02/06/24 10:45 Last Admin: 02/06/24 10:24 Dose: 200 mls/hr Opioid Naive vs. Tolerant Does Patient Take Opioids?: Yes Is Patient Opioid Naive?: No What is Opioid Naive?: *Opioid Naive implies the patient is not already taking opioids or not chronically receiving opioids on a daily basis. *PRN dosing is not "usually" associated with tolerance. *Patients are at higher risk of over-sedation and aspiration. Is Patient Opioid Tolerant?: No What is Opioid Tolerant?: *Opioid Tolerance implies less than the expected response to an opioid. *Acquired tolerance is defined by the patient taking 60mg of oral morphine daily (or equianalgesic dose of another opioid) for 1 week or more. *Often associated with chronic pain. *May take more than usual dose to achieve desired pain control. Review of Systems Constitutional: Reports No symptoms Head: Reports Normocephalic Eyes: Reports No symptoms Ears: Reports No symptoms Nose: Reports No symptoms Mouth: Reports No symptoms Throat: Reports No symptoms Cardiovascular: Reports No symptoms Respiratory: Reports No symptoms Gastrointestinal: Reports No symptoms Genitourinary: Reports No Symptoms Musculoskeletal: Reports No symptoms Dermatologic: Reports Skin Changes (erythema and swelling to L lower leg) Endocrine: Reports No symptoms Hematology: Reports No symptoms Immunology: Reports No symptoms Neurological: Reports No symptoms Psychiatric: Reports No symptoms Physical examination Most Recent Vital Signs: Most Recent Vital Signs Temperature 97.6 F 02/06/24 13:59 Temperature Source Oral 02/06/24 13:59 Temperature Source Temporal Artery Scan 02/06/24 09:19 Pulse Rate 71 02/06/24 13:59 Respiratory Rate 18 02/06/24 13:59 Blood Pressure 119/68 02/06/24 09:19 Blood Pressure Left Arm 117/67 02/06/24 13:59 Blood Pressure Position Supine 02/06/24 13:59 O2 Sat by Pulse Oximetry 95 02/06/24 13:59 Oxygen Delivery Method Room Air 02/06/24 13:59 Height 5 ft 8 in 02/06/24 13:59 Weight 103.9 kg 02/06/24 13:59 Telemetry Type Remote Telemetry 02/06/24 13:00 Telemetry Monitoring Started 02/06/24 13:00 Irregular Telemetry Rate (Approximate) 70-80 BPM 02/06/24 13:00 EKG TN Interval 0.28 H 02/06/24 13:00 EKG QRS Interval 0.09 02/06/24 13:00 Telemetry Strip Reading SA with 1st degree AVB 02/06/24 13:00 Appearance: Positive No Apparent Distress and Alert and Oriented x3 Skin: Positive Warm, Good Turgor and Erythema (large erythematous area with 2 scaled areas to the L lower leg, no drainage noted, moderate swelling) HEENT: Positive Normocephalic and PERRLA Neck: Positive Supple and Midline Trachea Chest/Lungs: Positive Symmetrical With Equal Breath Sounds, Clear to Auscultation Bilaterally and Good Air Movement all 4 Lung [place] Heart: Positive RRR and Pulses Normal GI/: Positive Soft, Nontender, Bowel Sounds Normal and No Distention Musculoskeletal: Positive Not Examined Extremities: Positive Edema (+2-3 pitting to L leg, +1 pitting to R leg), Intact Peripheral Pulses, Stable Joints Without Laxity and Good ROM in All Joints Neurological: Positive Sensation Intact, Motor intact, Alert, Oriented and Muscle Strength 5/5 in Upper and Lower Extremities Bilaterally Labs This Visit Labs This Visit: Labs This Visit 02/06/24 02/06/24 10:02 10:04 WBC 7.29 RBC 3.89 L Hgb 11.5 L Hct 37.2 L MCV 95.6 H MCH 29.6 MCHC 30.9 L RDW Coeff of Yolanda 14.1 Plt Count 296 Immature Gran % (Auto) 0.4 Neut % (Auto) 74.9 Lymph % (Auto) 14.7 [place] % (Auto) 6.9 Eos % (Auto) 2.6 Baso % (Auto) 0.5 Neut # (Auto) 5.5 Lymph # (Auto) 1.1 [place] # (Auto) 0.5 Eos # (Auto) 0.2 Baso # (Auto) 0.0 Immature Gran # (Auto) 0.0 Sodium 137.4 Potassium 4.14 Chloride 104.7 Carbon Dioxide 29.2 Anion Gap 7.64 BUN 15.9 Creatinine 1.07 Estimated GFR (MDRD) 68.00 BUN/Creatinine Ratio 14.85 Glucose 131.1 H Calcium 8.85 Total Bilirubin 0.44 AST 28.6 ALT 23.5 Alkaline Phosphatase 56.6 Total Protein 6.63 Albumin 3.68 Globulin 2.95 Albumin/Globulin Ratio 1.24 SARS CoV-2 RNA Rapid WILMAR Negative Imaging Imaging: EXAM: CT LEFT TIBIA AND FIBULA WITH CONTRAST. FINDINGS: There is severe diffuse cellulitis with skin thickening and subcutaneous edema from the knee through the visualized portions of the ankle. No definite focal fluid collection or abscess. No high density material to suggest hematoma. No intra fascial fluid or soft tissue gas appreciated. No significant knee joint effusion. Popliteal artery and trifurcation vessels appear grossly patent.. Osseous structures are intact. No evidence of osteomyelitis. Visualized portions of the knee and ankle joints appear grossly unremarkable. IMPRESSION: Diffuse cellulitis. No evidence of focal fluid collection, abscess, or osteomyelitis. Review Statement Review Statement: I have independently reviewed and interpreted the labs/EKGs/imaging that were ordered by the ER provider. I have reviewed all outside records that are available currently in our EMR including imaging/notes/labs from previous visits. Plan Plan: 1. Cellulitis to L lower extremity - failed outpatient therapy, vanc 1G daily, unable to culture wound at this time due to lack of drainage, wound care appt on , venous US negative, CT negative for abscess 2. DM2 - chronic, ADA diet, accuchecks qid with ssi, continue home lantus 3. Hypertension - chronic, continue home medications 4. Hyperlipidemia - chronic, stable, continue home medications 5. COPD - chronic, not in exacerbation, continue home inahlers DVT Prophylaxis: ambulation Time Spent: Greater than 80 minutes spent with patient, 50% of the time spent with this patient was devoted to counseling and coordination of care. Advanced Care Plannin minutes spent discussing advance care planning. Disposition: Admit to: Med/Surg Observation DNR Discussed Plan of Care with Dr. Lucian Brito. Medications Medication Orders: Medications Ordered Category Date Time Status 0.9 % Sodium Chloride [Saline Flush] Meds 02/06/24 09:46 Active 1 syr IVF PRN PRN Acetaminophen [Tylenol] Meds 02/06/24 13:18 Active 650 mg PO Q4H PRN Insulin Regular, Human [Humulin R (10Ml)] Meds 02/06/24 14:21 Active See Protocol SUBCUT PRN PRN Vancomycin/Water For Inj (Peg) [Vancomycin 1 Gram/200 Meds 02/06/24 21:00 Active ml Premix] 1 gm in 200 ml IV Q12HR
[2024-02-06] MEDS ORDERED: FLONASE NAS PRN (17:08)
[2024-02-06] MEDS ORDERED: NON-FORMULARY MEDICATION (Triamcinolone Acetonide 0.1 % ointment) TP PRN (17:08)
[2024-02-06] MEDS ORDERED: FLEXERIL PO PRN (17:08)
[2024-02-06] MEDS ORDERED: BACTROBAN TP PRN (17:08)
[2024-02-06] MEDS ORDERED: NON-FORMULARY MEDICATION (Fluticasone-Umeclidin-Vilanter [Trelegy Ellipta] 200-62.5-25 mcg SCH (17:15)
[2024-02-06] MEDS ORDERED: VENTOLIN HFA IH PRN (17:30)
[2024-02-06] MEDS: SYMBICORT 160-4.5 MCG INHALER IH SCH (20:26)
[2024-02-06] MEDS: VANCOMYCIN 1 GRAM/200 ML PREMIX 1 GM/200 ML BAG IV SCH (20:26)
[2024-02-06] MEDS: NEURONTIN PO SCH ×2 (20:27)
[2024-02-06] MEDS: LANTUS SUBCUT SCH (20:27)
[2024-02-06] MEDS: BENTYL PO SCH (20:28)
[2024-02-06] MEDS: LIPITOR PO SCH (20:28)
[2024-02-06] MEDS: BETAMETHASONE VALERATE TP SCH (21:24)
[2024-02-06] MEDS: SILVADENE CREAM TP SCH (21:24)
[2024-02-07 05:23] LABS: BASOPHILS # (AUTO) 0.1 K/uL (0-0.2); BASOPHILS % (AUTO) 0.6 % (0.0-3.0); EOSINOPHILS # (AUTO) 0.3 K/ul (0.0-0.7); EOSINOPHILS % (AUTO) 3.3 % (0.0-7.0); HEMATOCRIT 37.7 % (42.0-52.0); HEMOGLOBIN 11.8 g/dl (14.0-18.0); IMMATURE GRANULOCYTE % (AUTO) 0.4 % (0.0-5.0); LYMPHOCYTES # (AUTO) 1.1 K/uL (0.60-3.4); LYMPHOCYTES % (AUTO) 13.5 (10.0-50.0); MEAN CORPUSCULAR HEMOGLOBIN 29.9 pg (27.0-31.0); MEAN CORPUSCULAR HGB CONC 31.3 (31.8-35.4); MEAN CORPUSCULAR VOLUME 95.4 fl (80.0-94.0); MONOCYTES # (AUTO) 0.5 K/uL (0.4-2.0); MONOCYTES % (AUTO) 5.7 (0-10); NEUTROPHILS % (AUTO) 76.5 % (42.2-75.2); PLATELET COUNT 304 10^3/uL (140-440); RDW COEFFICIENT OF VARIATION 14.1 % (11.6-14.8); RED BLOOD COUNT 3.95 10^6/ul (4.70-6.10); WHITE BLOOD COUNT 7.84 K/ul (4.2-10.2)
[2024-02-07 05:40] LABS: ALANINE AMINOTRANSFERASE 23.5 U/L (0-50); ALBUMIN 3.67 g/dL (3.5-5.0); ASPARTATE AMINO TRANSFERASE 28.4 U/L (17-59); BILIRUBIN,TOTAL 0.3 mg/dL (0.2-1.3); BLOOD UREA NITROGEN 15.4 mg/dL (9-20); CALCIUM 8.95 mg/dL (8.4-10.2); CARBON DIOXIDE 26.1 mmol/L (22-30.0); CHLORIDE 107.6 mmol/L (98-107); CREATININE 1.04 mg/dL (0.60-1.10); GLUCOSE 128.1 mg/dL (74-106); POTASSIUM 4.47 mmol/L (3.5-5.1); SODIUM 141.3 mmol/L (134.5-145); TOTAL PROTEIN 6.64 g/dL (6.3-8.2)
[2024-02-07 06:24] LABS: ERYTHROCYTE SEDIMENTATION RATE 31 mm/hr (0-15)
[2024-02-07] MEDS: LASIX TAB PO SCH (08:21)
[2024-02-07] MEDS: ZESTRIL PO SCH (08:21)
[2024-02-07] MEDS: SINGULAIR PO SCH (08:21)
[2024-02-07] MEDS: PROZAC PO SCH (08:22)
[2024-02-07] MEDS: NON-FORMULARY MEDICATION (Fluticasone-Umeclidin-Vilanter [Trelegy Ellipta] 200-62.5-25 mcg INH SCH (08:22)
[2024-02-07] MEDS: SPIRIVA IH SCH (08:25)
[2024-02-07] MEDS ORDERED: VANCOMYCIN 1 GRAM/200 ML PREMIX 1 GM/200 ML BAG IV SCH (09:00)
--- NOTE | 2024-02-07 09:52 | PCM.PROG ---
Date/Time Seen Date Seen by Provider: 02/07/24 Time Seen by Provider: 08:40 Provider Provider: KATLYN LUDWIG, [facility] Chief Complaint Chief Complaint: CELLULITIS LEFT LOWER LEG Subjective Subjective: Erythema and swelling improved to L leg today. No open areas with drainage. Having neuropathy pains to R leg - did not take gabapentin yesterday morning and feels this is likely contributing Objective Appearance: Positive No Apparent Distress and Alert and Oriented x3 Chest/Lungs: Positive Symmetrical With Equal Breath Sounds, Clear to Auscultation Bilaterally and Good Air Movement all 4 Lung [place] Heart: Positive RRR and Pulses Normal GI/: Positive Soft, Nontender, Bowel Sounds Normal and No Distention Musculoskeletal: Positive Not Examined Neurological: Positive Sensation Intact, Motor intact, Alert, Oriented and Muscle Strength 5/5 in Upper and Lower Extremities Bilaterally Additional Findings: Improving erythema and swelling to L lower leg, no open areas with drainage Vital Signs Vital Signs: Vital Signs: Last 24 Hours 02/06/24 13:00 02/06/24 13:30 02/06/24 13:59 Temperature 97.6 F 97.6 F Temperature Source Oral Oral Pulse Rate 71 71 Respiratory Rate 18 18 Blood Pressure 117/67 Blood Pressure Mean 83 Blood Pressure Left Arm 117/67 Blood Pressure Location Right Arm Blood Pressure Position Supine Supine O2 Sat by Pulse Oximetry 95 95 Oxygen Delivery Method Room Air Room Air Height 5 ft 8 in Weight 103.9 kg Telemetry Type Remote Telemetry Telemetry Monitoring Started Irregular Telemetry Rate (Approximate) 70-80 BPM Telemetry Heart Rate EKG VT Interval 0.28 H EKG QRS Interval 0.09 Telemetry Strip Reading SA with 1st degree AVB 02/06/24 13:59 02/06/24 14:00 02/06/24 15:00 Temperature Temperature Source Pulse Rate Respiratory Rate 18 Blood Pressure Blood Pressure Mean Blood Pressure Left Arm Blood Pressure Location Blood Pressure Position O2 Sat by Pulse Oximetry Oxygen Delivery Method Room Air Room Air Room Air Height Weight Telemetry Type Telemetry Monitoring Irregular Telemetry Rate (Approximate) Telemetry Heart Rate EKG VT Interval EKG QRS Interval Telemetry Strip [place] 02/06/24 16:00 02/06/24 16:53 02/06/24 17:56 Temperature 97.1 F L Temperature Source Temporal Artery Scan Pulse Rate 73 Respiratory Rate 16 Blood Pressure 135/85 Blood Pressure Mean 101 Blood Pressure Left Arm Blood Pressure Location Right Arm Blood Pressure Position Sitting O2 Sat by Pulse Oximetry 97 Oxygen Delivery Method Room Air Room Air Room Air Height Weight Telemetry Type Telemetry Monitoring Irregular Telemetry Rate (Approximate) Telemetry Heart Rate EKG VT Interval EKG QRS Interval Telemetry Strip [place] 02/06/24 17:56 02/06/24 19:00 02/06/24 19:00 Temperature Temperature Source Pulse Rate Respiratory Rate Blood Pressure Blood Pressure Mean Blood Pressure Left Arm Blood Pressure Location Blood Pressure Position O2 Sat by Pulse Oximetry Oxygen Delivery Method Room Air Room Air Height Weight Telemetry Type Remote Telemetry Telemetry Monitoring Irregular Telemetry Rate (Approximate) Telemetry Heart Rate EKG VT Interval 0.26 H EKG QRS Interval 0.06 Telemetry Strip [place] SR with 1st degree AVB 02/06/24 20:00 02/06/24 20:00 02/06/24 20:35 Temperature 98.1 F Temperature Source Temporal Artery Scan Pulse Rate 80 Respiratory Rate 18 Blood Pressure 154/89 H Blood Pressure Mean 110 Blood Pressure Left Arm Blood Pressure Location Right Arm Blood Pressure Position Sitting O2 Sat by Pulse Oximetry 97 Oxygen Delivery Method Room Air Room Air Room Air Height Weight Telemetry Type Telemetry Monitoring Irregular Telemetry Rate (Approximate) Telemetry Heart Rate EKG VT Interval EKG QRS Interval Telemetry Strip [place] 02/06/24 21:00 02/06/24 22:00 02/06/24 23:00 Temperature Temperature Source Pulse Rate Respiratory Rate Blood Pressure Blood Pressure Mean Blood Pressure Left Arm Blood Pressure Location Blood Pressure Position O2 Sat by Pulse Oximetry Oxygen Delivery Method Room Air Room Air Room Air Height Weight Telemetry Type Telemetry Monitoring Irregular Telemetry Rate (Approximate) Telemetry Heart Rate EKG VT Interval EKG QRS Interval Telemetry Strip [place] 02/07/24 00:00 02/07/24 01:00 02/07/24 01:00 Temperature Temperature Source Pulse Rate Respiratory Rate Blood Pressure Blood Pressure Mean Blood Pressure Left Arm Blood Pressure Location Blood Pressure Position O2 Sat by Pulse Oximetry Oxygen Delivery Method Room Air Room Air Height Weight Telemetry Type Remote Telemetry Telemetry Monitoring Continues Irregular Telemetry Rate (Approximate) Telemetry Heart Rate EKG VT Interval 0.24 H EKG QRS Interval 0.06 Telemetry Strip Reading SR with 1st degree AVB 02/07/24 02:00 02/07/24 03:00 02/07/24 04:00 Temperature Temperature Source Pulse Rate Respiratory Rate Blood Pressure Blood Pressure Mean Blood Pressure Left Arm Blood Pressure Location Blood Pressure Position O2 Sat by Pulse Oximetry Oxygen Delivery Method Room Air Room Air Room Air Height Weight Telemetry Type Telemetry Monitoring Irregular Telemetry Rate (Approximate) Telemetry Heart Rate EKG VT Interval EKG QRS Interval Telemetry Strip [place] 02/07/24 05:00 02/07/24 05:13 02/07/24 06:00 Temperature 98.5 F Temperature Source Temporal Artery Scan Pulse Rate 94 Respiratory Rate 18 Blood Pressure 106/58 L Blood Pressure Mean 74 Blood Pressure Left Arm Blood Pressure Location Right Arm Blood Pressure Position Supine O2 Sat by Pulse Oximetry 96 Oxygen Delivery Method Room Air Room Air Room Air Height Weight Telemetry Type Telemetry Monitoring Irregular Telemetry Rate (Approximate) Telemetry Heart Rate EKG VT Interval EKG QRS Interval Telemetry Strip [place] 02/07/24 07:00 Temperature Temperature Source Pulse Rate Respiratory Rate Blood Pressure Blood Pressure Mean Blood Pressure Left Arm Blood Pressure Location Blood Pressure Position O2 Sat by Pulse Oximetry Oxygen Delivery Method Height Weight Telemetry Type Remote Telemetry Telemetry Monitoring Continues Irregular Telemetry Rate (Approximate) Telemetry Heart Rate 84 EKG VT Interval 0.22 H EKG QRS Interval 0.04 L Telemetry Strip Reading SR with 1st degree AVB and PACs Lab Results Lab Results: Lab Results: Last 24 Hours 02/07/24 02/06/24 02/06/24 04:57 10:04 10:02 WBC 7.84 7.29 RBC 3.95 L 3.89 L Hgb 11.8 L 11.5 L Hct 37.7 L 37.2 L MCV 95.4 H 95.6 H MCH 29.9 29.6 MCHC 31.3 L 30.9 L RDW Coeff of Yolanda 14.1 14.1 Plt Count 304 296 Immature Gran % (Auto) 0.4 0.4 Neut % (Auto) 76.5 H 74.9 Lymph % (Auto) 13.5 14.7 Bryan % (Auto) 5.7 6.9 Eos % (Auto) 3.3 2.6 Baso % (Auto) 0.6 0.5 Neut # (Auto) 6.0 5.5 Lymph # (Auto) 1.1 1.1 Bryan # (Auto) 0.5 0.5 Eos # (Auto) 0.3 0.2 Baso # (Auto) 0.1 0.0 Immature Gran # (Auto) 0.0 0.0 ESR 31 H Sodium 141.3 137.4 Potassium 4.47 4.14 Chloride 107.6 H 104.7 Carbon Dioxide 26.1 29.2 Anion Gap 12.07 7.64 BUN 15.4 15.9 Creatinine 1.04 1.07 Estimated GFR (MDRD) 70.00 68.00 BUN/Creatinine Ratio 14.80 14.85 Glucose 128.1 H 131.1 H Calcium 8.95 8.85 Total Bilirubin 0.30 0.44 AST 28.4 28.6 ALT 23.5 23.5 Alkaline Phosphatase 57.0 56.6 Total Protein 6.64 6.63 Albumin 3.67 3.68 Globulin 2.97 2.95 Albumin/Globulin Ratio 1.23 1.24 SARS CoV-2 RNA Rapid WILMAR Negative Additional Comments Additional Comments: I have independently reviewed and interpreted the labs/EKGs/imaging ordered during this hospital stay. I have reviewed outside records that are available in our EMR that pertain to medical stay including imaging/notes/labs from previous visits. Active Medications Active Medications: Medications Generic Name Dose Route Start Last Admin Trade Name Freq PRN Reason Stop Dose Admin Acetaminophen 650 mg 02/06/24 13:18 Acetaminophen 325 Mg Tablet PO Q4H PRN Mild Pain Albuterol Sulfate 2 puff 02/06/24 17:30 Albuterol Sulfate 8 Gm Inhaler IH Q6H PRN shortness of breath Atorvastatin Calcium 40 mg 02/06/24 21:00 02/06/24 20:28 Atorvastatin Calcium 20 Mg Tablet PO 40 mg DAILY@2100 RIGO Administration Betamethasone Valerate 1 applic 02/06/24 21:00 02/06/24 21:24 Betamethasone Valerate 0.1% 45gm Cream TP 1 applic BID RIGO Administration Cyclobenzaprine HCl 10 mg 02/06/24 17:08 Cyclobenzaprine Hcl 10 Mg Tablet PO TID PRN Spasms Dicyclomine HCl 20 mg 02/06/24 21:00 02/07/24 08:21 Dicyclomine Hcl 10 Mg Capsule PO 20 mg TID RIGO Administration Fluoxetine HCl 20 mg 02/07/24 09:00 02/07/24 08:22 Fluoxetine Hcl 20 Mg Capsule PO 20 mg DAILY RIGO Administration Fluticasone Propionate 1 spray 02/06/24 17:08 Fluticasone Propionate 16 Gm Nasal [place] TABITHA BID PRN Nasal Congestion Furosemide 40 mg 02/07/24 09:00 02/07/24 08:21 Furosemide 40 Mg Tablet PO 40 mg QDAC2 RIGO Administration Gabapentin 200 mg 02/06/24 21:00 02/07/24 08:22 Gabapentin 100 Mg Capsule PO 200 mg 3XD RIGO Administration Gabapentin 600 mg 02/06/24 21:00 02/07/24 08:22 Gabapentin 300 Mg Capsule PO 600 mg 3XD RIGO Administration VANCOMYCIN/WATER FOR INJ (PEG) 1 gm in 200 mls @ 200 mls/hr 02/06/24 21:00 02/07/24 08:20 Vancomycin 1 Gram/200 Ml Premix IV 02/09/24 20:59 200 mls/hr Q12HR RIGO Administration Insulin Glargine 40 unit 02/06/24 21:00 02/07/24 08:28 Insulin Glargine,Hum.Rec.Anlog 100 Units/Ml SUBCUT 40 unit BID RIGO Administration Insulin Human Regular 0 unit 02/06/24 14:21 Insulin Regular, Human 100 Unit/Ml (10ml) Vial SUBCUT PRN PRN Hyperglycemia Protocol Lisinopril 20 mg 02/07/24 09:00 02/07/24 08:21 Lisinopril 10 Mg Tablet PO 20 mg DAILY RIGO Administration Montelukast Sodium 10 mg 02/07/24 09:00 02/07/24 08:21 Montelukast Sodium 10 Mg Tablet PO 10 mg DAILY RIGO Administration Mupirocin 1 applic 02/06/24 17:08 Mupirocin 22 Gm Oint TP 02/09/24 17:07 BID PRN cuts Non-Formulary Medication 1 inh 02/07/24 09:00 [id number] [Trelegy Ellipta] INH DAILY RIGO Pantoprazole Sodium 40 mg 02/07/24 09:00 Pantoprazole Sodium 40 Mg Tablet. PO QDAC2 RIGO Silver Sulfadiazine 1 applic 02/06/24 21:00 02/06/24 21:24 Silver Sulfadiazine 50 Gm Cream TP 1 applic BID RIGO Administration Sodium Chloride 1 syr 02/06/24 09:46 0.9% Sodium Chloride 10 Ml Disp.Syrin IVF PRN PRN To flush IV Sodium Chloride 1 syr 02/06/24 21:00 02/07/24 05:54 0.9% Sodium Chloride 10 Ml Disp.Syrin IVF 1 syr Q8HR RIGO Administration Tramadol HCl 50 mg 02/06/24 17:08 Tramadol Hcl 50 Mg Tablet PO BID PRN Pain Plan Plan: 1. Cellulitis to L lower extremity - failed outpatient therapy, vanc 1G daily, unable to culture wound at this time due to lack of drainage, wound care appt on , venous US negative, CT negative for abscess 2. DM2 - chronic, ADA diet, accuchecks qid with ssi, continue home lantus 3. Hypertension - chronic, continue home medications 4. Hyperlipidemia - chronic, stable, continue home medications 5. COPD - chronic, not in exacerbation, continue home inahlers DVT Prophylaxis: ambulation Review Statement Review Statement: I have personally discussed and reviewed the patient's visit/currently labs/imaging/decision making with Dr. Brito, my supervising attending. Greater that 50 minutes spent with patient, 50% of the time spent with this patient was devoted to counseling and coordination of care.
[2024-02-07] MEDS: PROTONIX PO SCH (11:16)
[2024-02-07] MEDS: ULTRAM PO PRN (14:32)
[2024-02-08 05:59] LABS: BASOPHILS # (AUTO) 0.1 K/uL (0-0.2); BASOPHILS % (AUTO) 0.7 % (0.0-3.0); EOSINOPHILS # (AUTO) 0.4 K/ul (0.0-0.7); EOSINOPHILS % (AUTO) 4.5 % (0.0-7.0); HEMATOCRIT 38.5 % (42.0-52.0); HEMOGLOBIN 11.7 g/dl (14.0-18.0); IMMATURE GRANULOCYTE # (AUTO) 0.1 (0.0-1.0); IMMATURE GRANULOCYTE % (AUTO) 0.6 % (0.0-5.0); LYMPHOCYTES # (AUTO) 1.6 K/uL (0.60-3.4); LYMPHOCYTES % (AUTO) 18.3 (10.0-50.0); MEAN CORPUSCULAR HEMOGLOBIN 29.3 pg (27.0-31.0); MEAN CORPUSCULAR HGB CONC 30.4 (31.8-35.4); MEAN CORPUSCULAR VOLUME 96.5 fl (80.0-94.0); MONOCYTES # (AUTO) 0.6 K/uL (0.4-2.0); MONOCYTES % (AUTO) 6.5 (0-10); NEUTROPHILS % (AUTO) 69.4 % (42.2-75.2); PLATELET COUNT 300 10^3/uL (140-440); RDW COEFFICIENT OF VARIATION 14.1 % (11.6-14.8); RED BLOOD COUNT 3.99 10^6/ul (4.70-6.10); WHITE BLOOD COUNT 8.59 K/ul (4.2-10.2)
[2024-02-08 06:14] LABS: ALANINE AMINOTRANSFERASE 23.5 U/L (0-50); ALBUMIN 3.64 g/dL (3.5-5.0); ALKALINE PHOSPHATASE 56.1 U/L (56-119); ASPARTATE AMINO TRANSFERASE 29.8 U/L (17-59); BILIRUBIN,TOTAL 0.28 mg/dL (0.2-1.3); BLOOD UREA NITROGEN 17.4 mg/dL (9-20); CALCIUM 8.96 mg/dL (8.4-10.2); CARBON DIOXIDE 29.4 mmol/L (22-30.0); CHLORIDE 105.8 mmol/L (98-107); CREATININE 1.17 mg/dL (0.60-1.10); GLUCOSE 115.9 mg/dL (74-106); POTASSIUM 4.41 mmol/L (3.5-5.1); SODIUM 139.4 mmol/L (134.5-145); TOTAL PROTEIN 6.64 g/dL (6.3-8.2)
[2024-02-08 06:49] LABS: ERYTHROCYTE SEDIMENTATION RATE 28 mm/hr (0-15)
[2024-02-08] MEDS: VANCOMYCIN 1.5 GRAM/300 ML PREMIX 1.5 GM/300 ML BAG IV SCH (07:27)
--- NOTE | 2024-02-08 14:30 | DCSUM ---
Admission Date Admission Date: 02/06/24 Discharge Date Discharge Date: 02/08/24 Admission Diagnosis Admission Diagnosis: 1. Cellulitis to L lower extremity 2. DM2 3. Hypertension 4. Hyperlipidemia 5. COPD Discharge Diagnosis Discharge Diagnosis: 1. Cellulitis to L lower extremity - Improving 2. DM2 - chronic, stable 3. Hypertension - chronic, stable 4. Hyperlipidemia - chronic, stable, stable 5. COPD - chronic, stable Hospital Provider Hospital Provider: [place]ATLYN LUDWIG[place] [facility] [place] Primary Care Physician: JEFF EDWARDS APRN,[facility] Summary of History and Physical Summary of History and Physical: 73 yo male with pmh of DM2, COPD, and HTN presented to the ER with cellulitis to LLE. Follows with wound care and was treated with Zyvox started on 02/01/24 and developed an allergic reaction with diffuse hives. Stopped yesterday 02/05/24. Ordered lasix BID x 3 days initially and then ordered to continue to assist with swelling. Ulcers initially present and with drainage - on 02/05/24 no further antibiotics continued due to decrease in ulcers and less drainage present. Wound culture completed to same area on 12/19 that showed growth of staph haemolyticus that is sensitive to vancomycin. WBC normal today. CT shows cellulitis without abscess. Unable to culture wound at this time due to no draining areas. He was given vancomycin in the ER. Admitted to med/surg observation. Hospital Course Subjective: Cellulitis to L lower extremity - failed outpatient therapy, vanc 1G daily, unable to culture wound at this time due to lack of drainage, venous US negative, CT negative for abscess Wound culture from 11/2023 showed growth of staph haemolyticus sensitive to vancomycin. Other sensitivities either medication is unavailable or patient allergic. Continue vanc x 2 more days outpatient Q12H for total of 5 days of antibiotic therapy. No changes to home medications Continue to follow with wound care. Appearance: Pleasant, No Apparent Distress and Alert HEENT: MMM and Supple CVS: No Murmur Abdomen: Soft, Non-Tender and No Distention Respiratory: No Dyspnea Additional Findings: erythematous area to L lower extremity, improving, swelling improving, no drainage or open area Vital Signs: Most Recent Vital Signs Temperature 98.1 F 02/08/24 14:00 Temperature Source Temporal Artery Scan 02/08/24 14:00 Temperature Source Temporal Artery Scan 02/06/24 09:19 Pulse Rate 81 02/08/24 14:00 Respiratory Rate 19 02/08/24 14:00 Blood Pressure 113/70 02/08/24 14:00 Blood Pressure Mean 84 02/08/24 14:00 Blood Pressure Left Arm 117/67 02/06/24 13:59 Blood Pressure Location Right Arm 02/08/24 14:00 Blood Pressure Position Supine 02/08/24 14:00 O2 Sat by Pulse Oximetry 96 02/08/24 14:00 Oxygen Delivery Method Room Air 02/08/24 14:00 Height 5 ft 8 in 02/06/24 13:59 Weight 103.9 kg 02/06/24 13:59 Telemetry Type Remote Telemetry 02/08/24 07:00 Telemetry Monitoring Continues 02/08/24 07:00 Irregular Telemetry Rate (Approximate) 70-80 BPM 02/06/24 13:00 Telemetry Heart Rate 71 02/08/24 07:00 EKG WA Interval 0.28 H 02/08/24 07:00 EKG QRS Interval 0.07 02/08/24 07:00 Telemetry Strip Reading SR with 1st Degree AVB 02/08/24 07:00 Imaging: EXAM: CT LEFT TIBIA AND FIBULA WITH CONTRAST. HISTORY: Suspected infection. Left lower leg pain. TECHNIQUE: Helical axial sections were obtained through the tibia and fibula with iodinated intravenous contrast enhancement. Coronal and sagittal reformatted images were obtained from the axial source images. Images were reviewed on a high-resolution PACS workstation. DICOM images are available. CT Dose Reduction Techniques Performed: Yes. COMPARISON: None. FINDINGS: There is severe diffuse cellulitis with skin thickening and subcutaneous edema from the knee through the visualized portions of the ankle. No definite focal fluid collection or abscess. No high density material to mckoy ggest hematoma. No intra fascial fluid or soft tissue gas appreciated. No significant knee joint effusion. Popliteal artery and trifurcation vessels appear grossly patent.. Osseous structures are intact. No evidence of osteomyelitis. Visualized portions of the knee and ankle joints appear grossly unremarkable. IMPRESSION: Diffuse cellulitis. No evidence of focal fluid collection, abscess, or osteomyelitis. Lab Results Last 24 Hours: 02/08/24 02/07/24 05:17 20:30 WBC 8.59 RBC 3.99 L Hgb 11.7 L Hct 38.5 L MCV 96.5 H MCH 29.3 MCHC 30.4 L RDW Coeff of Yolanda 14.1 Plt Count 300 Immature Gran % (Auto) 0.6 Neut % (Auto) 69.4 Lymph % (Auto) 18.3 Sandoval % (Auto) 6.5 Eos % (Auto) 4.5 Baso % (Auto) 0.7 Neut # (Auto) 6.0 Lymph # (Auto) 1.6 Sandoval # (Auto) 0.6 Eos # (Auto) 0.4 Baso # (Auto) 0.1 Immature Gran # (Auto) 0.1 ESR 28 H Sodium 139.4 Potassium 4.41 Chloride 105.8 Carbon Dioxide 29.4 Anion Gap 8.61 BUN 17.4 Creatinine 1.17 H Estimated GFR (MDRD) 61.00 BUN/Creatinine Ratio 14.87 Glucose 115.9 H Calcium 8.96 Total Bilirubin 0.28 AST 29.8 ALT 23.5 Alkaline Phosphatase 56.1 Total Protein 6.64 Albumin 3.64 Globulin 3.00 Albumin/Globulin Ratio 1.21 Vancomycin Trough 9.135 L Discharge Instructions Discharge Planning: Discharge Planning > 40 minutes If patient is discharged with left ventricular systolic dysfunction: NA Discharged with a beta stella? [] If no, why not? [] Discharged with an karissa/arb? [] If no, why not? [] Diagnosis: Cellulitis to L lower extremity Diet: Diabetic Activity: as tolerated Follow-up with PCP next week YOU ARE SCHEDULED WITH WOUND CARE AT [facility] ON AT 8AM. Medication you will be receiving outpatient: Vancomycin 1.5 mg every 12 hours on Monday and Monday. Discharge Medications: Medications at Discharge (Home Meds & RX) lancing device with lancets kit ([employer] Lancing Device kit) ##100 10/03/17 blood-glucose meter #1 ea 06/11/20 lancets 33 gauge ([employer] Lancets) See Rx Instructions .Route .COMPLEX ##100 09/28/20 comp.stocking,knee,long,medium #12 ea 02/27/21 blood sugar diagnostic (Blood Glucose Test strips) #100 strips 04/20/21 albuterol sulfate 2.5 mg/3 mL (0.083 %) solution for nebulization 2.5 mg (3 mL) inhalation Q4-6H PRN shortness of breath or wheezing- copd J44.10 #180 mL 01/19/22 triamcinolone acetonide 0.1 % topical ointment 1 applic topical QDAY PRN lower extremiity redness #453.6 grams 05/31/22 blood sugar diagnostic (achvrTouch Ultra Test strips) #100 ea 04/25/23 mupirocin 2 % topical ointment See Rx Instructions .Route .COMPLEX #22 ea 05/07/23 betamethasone valerate 0.1 % topical cream 1 applic topical BID rash #45 grams 06/08/23 atorvastatin 40 mg tablet See Rx Instructions .Route .COMPLEX #30 tabs 08/24/23 fluoxetine 20 mg capsule See Rx Instructions .Route .COMPLEX #90 caps 08/24/23 pantoprazole 40 mg tablet,delayed release See Rx Instructions .Route .COMPLEX #90 tabs 08/24/23 montelukast 10 mg tablet See Rx Instructions .Route .COMPLEX #90 tabs 10/19/23 albuterol sulfate 90 mcg/actuation aerosol inhaler See Rx Instructions .Route .COMPLEX #6.7 grams 11/16/23 pen needle, diabetic 30 gauge x 5/16" (Easy Touch Pen Needle) #100 ea 11/16/23 fluticasone fur. 200 mcg-umeclid 62.5 mcg-vilant 25 mcg inhalat.powder (Trelegy Ellipta) See Rx Instructions .Route .COMPLEX #60 ea 12/14/23 lisinopril 20 mg tablet See Rx Instructions .Route .COMPLEX #90 tabs 12/14/23 insulin glargine 100 unit/mL (3 mL) subcutaneous pen (Lantus Solostar U-100 Insulin) See Rx Instructions .Route .COMPLEX dm2 #30 ea 12/20/23 tirzepatide 5 mg/0.5 mL subcutaneous pen injector (Mounjaro) 5 mg (0.5 mL) subcut QWEEK DM2 1 month #2 ea 12/28/23 cyclobenzaprine 10 mg tablet 10 mg PO TID PRN muscle spasm #90 tabs 01/11/24 furosemide 40 mg tablet 40 mg PO QAM #30 tabs 01/11/24 dicyclomine 20 mg tablet 20 mg PO TID #90 tabs 01/23/24 silver sulfadiazine 1 % topical cream 1 applic topical BID left lower extremity #85 grams 01/25/24 gabapentin 800 mg tablet 800 mg PO 3XD #90 tabs 02/05/24 tramadol 50 mg tablet 50 mg PO BID PRN pain #60 tabs 02/05/24 fluticasone propionate 50 mcg/actuation nasal spray,suspension 1 spray intranasal BID PRN nasal congestion 02/06/24 metformin 500 mg tablet 500 mg PO 2XD 02/06/24 Discharge Plan Discharge Discharge Orders: Discharge Patient (ONCE); Ordered 02/08/24 Ordered By: FREDA ELIZABETH Activity Restrictions/Additional Instructions: Diagnosis: Cellulitis to L lower extremity Diet: Diabetic Activity: as tolerated Follow-up with PCP next week YOU ARE SCHEDULED WITH WOUND CARE AT [facility] ON AT 8AM. Medication you will be receiving outpatient: Vancomycin 1.5 mg every 12 hours on Monday and Monday. Instructions: Vancomycin (By injection), Cellulitis (GEN) Care Plan Goals: Problem: Impaired Skin Integrity Goal: Improve skin integrity Instructions: Ambulate or up to chair as tolerated Increase oral intake if indicated Diet consult if indicated Keep bedding and clothing warm/dry Apply aloe vesta cream as needed Problem: Infection Goal #1: No signs/symptoms of infection Instructions: Monitor for sign/symptoms of infection Monitor temperature Goal #2: White blood cell counts Within Normal Limits Instructions: Obtain labs per physician orders Patient Disposition: HOME SELF-CARE Prescriptions: Continued (DME) lancing device with lancets [OneTouch [employer]ica Lanc Device] 1 EACH kit 1 ea MC TID Qty: 100 (DME) comp.stocking,knee,long,medium Misc See Rx Instructions .ROUTE Qty: 12 0RF Rx Instructions: As directed (DME) Blood Glucose Test Strip 1 ea 1-3XD Qty: 100 0RF Rx Instructions: accucheck three times daily and as needed albuterol sulfate 2.5 mg /3 mL (0.083 %) solution for nebulization 2.5 mg inhalation Q4-6H PRN (Reason: shortness of breath or wheezing- copd J44.10 ) Qty: 180 1RF Rx Instructions: ICD J44.10 mupirocin 2 % ointment See Rx Instructions .ROUTE .COMPLEX Qty: 22 2RF Dose Instruction: APPLY TO AFFECTED AREA TOPICALLY TWICE DAILY TO, CUTS AND SCRAPES NEEDED GENERIC FOR BACTROBAN Rx Instructions: APPLY TO AFFECTED AREA TOPICALLY TWICE DAILY TO, CUTS AND SCRAPES NEEDED GENERIC FOR BACTROBAN betamethasone valerate 0.1 % cream 1 applic topical BID Qty: 45 0RF atorvastatin 40 mg tablet See Rx Instructions .ROUTE .COMPLEX Qty: 30 5RF Dose Instruction: TAKE ONE TABLET ORALLY EVERY DAY AT BEDTIME; STOP 20 MG DOSAGE, CHANGE TO 40 MG BY MOUTH NIGHTLY Rx Instructions: TAKE ONE TABLET ORALLY EVERY DAY AT BEDTIME; STOP 20 MG DOSAGE, CHANGE TO 40 MG BY MOUTH NIGHTLY fluoxetine 20 mg capsule See Rx Instructions .ROUTE .COMPLEX Qty: 90 1RF Dose Instruction: TAKE 1 CAPSULE DAILY Rx Instructions: TAKE 1 CAPSULE DAILY pantoprazole 40 mg tablet,delayed release (DR/EC) See Rx Instructions .ROUTE .COMPLEX Qty: 90 1RF Dose Instruction: TAKE ONE TABLET DAILY Rx Instructions: TAKE ONE TABLET DAILY montelukast 10 mg tablet See Rx Instructions .ROUTE .COMPLEX Qty: 90 1RF Dose Instruction: TAKE ONE TABLET DAILY GENERIC FOR SINGULAR Rx Instructions: TAKE ONE TABLET DAILY GENERIC FOR SINGULAR albuterol sulfate 90 mcg/actuation HFA aerosol inhaler See Rx Instructions .ROUTE .COMPLEX Qty: 6.7 2RF Dose Instruction: INHALE 2 PUFFS EVERY FOUR TO SIX HOURS NEEDED FOR SHORTNESS OF BREATH OR WHEEZING FOR 30 DAYS Rx Instructions: INHALE 2 PUFFS EVERY FOUR TO SIX HOURS NEEDED FOR SHORTNESS OF BREATH OR WHEEZING FOR 30 DAYS (DME) pen needle, diabetic [Easy Touch Pen Needle] 30 gauge x 5/16" needle See Rx Instructions .ROUTE Qty: 100 2RF Rx Instructions: As directed for GLP1 and insulin injections, dm2 Trelegy Ellipta 200-62.5-25 mcg blister with device See Rx Instructions .ROUTE .COMPLEX Qty: 60 2RF Dose Instruction: USE 1 PUFF EVERY 24 HOURS Rx Instructions: USE 1 PUFF EVERY 24 HOURS lisinopril 20 mg tablet See Rx Instructions .ROUTE .COMPLEX Qty: 90 0RF Dose Instruction: TAKE ONE TABLET DAILY Rx Instructions: TAKE ONE TABLET DAILY Mounjaro 5 mg/0.5 mL pen injector 5 mg subcut QWEEK 30 Days Qty: 2 2RF Rx Instructions: 5 mg subcutaneously weekly cyclobenzaprine 10 mg tablet 10 mg PO TID PRN (Reason: muscle spasm) Qty: 90 0RF furosemide 40 mg tablet 40 mg PO QAM Qty: 30 5RF dicyclomine 20 mg tablet 20 mg PO TID Qty: 90 2RF silver sulfadiazine 1 % cream 1 applic topical BID Qty: 85 0RF Rx Instructions: apply a 1.5 mm thickness-apply thin layer to the left lower extremity twice daily after cleaning the left lower extremity with antibacterial liquid soap and warm water, pat dry, then apply thin layer of silvadene cream tramadol 50 mg tablet 50 mg PO BID PRN (Reason: pain) Qty: 60 0RF gabapentin 800 mg tablet 800 mg PO 3XD Qty: 90 2RF metformin 500 mg tablet 500 mg PO 2XD fluticasone propionate 50 mcg/actuation spray,suspension 1 spray intranasal BID PRN (Reason: nasal congestion) Rx Instructions: USE TWO SPRAYS IN EACH NOSTRIL DAILY PRN; (DME) OneTouch Ultra Test Strip See Rx Instructions .ROUTE Qty: 100 2RF Rx Instructions: Use three times daily insulin glargine [Lantus Solostar U-100 Insulin] 100 unit/mL (3 mL) insulin pen See Rx Instructions .ROUTE .COMPLEX Qty: 30 2RF Dose Instruction: INJECT 45 UNIT (0.45 ML) SUBCUTANEOUSLY TWICE A DAY FOR DMII Rx Instructions: INJECT 40 UNIT (0.45 ML) SUBCUTANEOUSLY TWICE A DAY FOR DMII-dosage change (DME) blood-glucose meter Misc See Rx Instructions .ROUTE .MEDSUPPLY Qty: 1 0RF Rx Instructions: three times daily and As directed lancets [OneTouch [employer]ica Lancets] 33 gauge misc See Rx Instructions .ROUTE .COMPLEX Qty: 100 2RF Dose Instruction: TEST THREE TIMES DAILY Rx Instructions: TEST THREE TIMES DAILY triamcinolone acetonide 0.1 % ointment 1 applic topical QDAY PRN (Reason: lower extremiity redness ) Qty: 453.6 0RF Did you review [place] [employer] for ALL controlled substances?: No Discussed opioids are addictive and Narcan is available by prescription or from pharmacy.: No Condition: Stable Referrals: JEFF EDWARDS APRN,FNPBC [Primary Care Provider] - 02/13/24 8:15 am
[2024-02-08] MEDS: HUMULIN R (10ML) SUBCUT PRN (17:19)
[2024-02-08 18:00] VITALS: PULSE 90
[2024-02-08 21:09] VITALS: BP 114/72; RESP 18; TEMP 98.7
== END 2024-02-08 22:46 | disposition home or self-care (01) ==
LOC: MEDSURG B 09:17 → ED 09:17 → MEDSURG B 13:07
PROVIDERS: ADMIT Hospitalist; ATTEND Nurse Practitioner Family